=== PATIENT | female | born 1945 | race Caucasian/White ===

== ENCOUNTER → 2016-08-16 | Outpatient (CLI) | payer OTHER ==
[~2016-08-16] MED LIST: ASPEC81 PO; AZEL15GE TOP; CETI10TA84 PO; DRN400 PO; LEVO137T3 PO; LISI40TA PO; POTA20TA16 PO; RIVA1TAB4 PO; SPIR50TA PO; TNR25 PO
[2016-08-16 09:49] LABS: HEMATOCRIT 38.5 % (37-47); MEAN CELL VOLUME 90.6 fL (80-100); MEAN CORPUSCULAR HEMOGLOBIN 31.8 pg (25-34); MEAN CORPUSCULAR HGB CONC 35.1 g/dl (32-36); MEAN PLATELET VOLUME 10.3 fL (7.4-10.4); PLATELET COUNT 249 K/uL (130-400); RED BLOOD COUNT 4.25 M/uL (4.2-5.4); WHITE BLOOD COUNT 6.37 K/uL (4.8-10.8)
[2016-08-16 09:59] LABS: BLOOD UREA NITROGEN 14 mg/dl (7-18); BUN/CREATININE RATIO 14.1 (10-20); CALCIUM 9.2 mg/dl (8.5-10.1); CARBON DIOXIDE 24 mmol/L (21-32); CHLORIDE 102 mmol/L (98-107); GLUCOSE 95 mg/dl (70-99); POTASSIUM 4.5 mmol/L (3.5-5.1); SODIUM 136 mmol/L (136-145)
== END | disposition home or self-care (01) ==
LOC: C.LABVPSUW 09:29
PROVIDERS: ATTEND Internal Medicine Critical Care Medicine
DX: I10 Essential (primary) hypertension (principal); E87.5 Hyperkalemia; D64.9 Anemia, unspecified

== ENCOUNTER → 2016-10-19 | Outpatient (CLI) | payer OTHER ==
[2016-10-19 16:16] LABS: THYROID STIMULATING HORMONE 0.809 uIu/ml (0.300-4.500)
== END | disposition home or self-care (01) ==
LOC: C.LAB1850 13:58
PROVIDERS: ATTEND Internal Medicine Endocrinology, Diabetes & Metabolism
DX: D49.7 Neoplasm of unspecified behavior of endocrine glands and other parts of nervous system (principal); E03.9 Hypothyroidism, unspecified

== ENCOUNTER → 2016-11-01 | Outpatient (CLI) | payer OTHER ==
[2016-11-01 16:27] LABS: BLOOD UREA NITROGEN 14 mg/dl (7-18)
== END | disposition home or self-care (01) ==
LOC: C.LAB1850 14:08
PROVIDERS: ATTEND Internal Medicine Endocrinology, Diabetes & Metabolism
DX: D49.7 Neoplasm of unspecified behavior of endocrine glands and other parts of nervous system (principal)

== ENCOUNTER → 2016-11-02 | Outpatient (CLI) | payer OTHER ==
[~2016-11-02] MED LIST changes: +GADAVIST IV PRN
--- NOTE | 2016-11-02 17:18 | DIAGNOSTIC IMAGING REPORT ---
MRI brain and pituitary BRAIN COMBO FOR PITUITARY CLINICAL HISTORY: Pituitary mass TECHNIQUE: MRI brain and pituitary multiphasic COMPARISON STUDY: 08/19/2013 FINDINGS: Slight increase in size of a right central pituitary mass. Current measurements are 15 x 8.5 mm.; Measurement on the prior study is 12.0 x 7.7 mm. Displacement of the pituitary stalk is similar. Enhancement characteristics are similar. There is no definite involvement of the cavernous sinus. There is no abnormal enhancement characteristics of the optic chiasm. The remainder the brain is unremarkable. Signal characteristics are uniform throughout. No additional foci of postcontrast enhancement are appreciated. There are findings of a mild age-related chronic small vessel and atrophic change. IMPRESSION: 1. Slight increase in size of a pituitary nodule/mass consistent with a pituitary adenoma 2. Current maximum dimensions are 15 x 8.5 mm. This is slightly increased from the prior study of 12.0 x 7.7 mm. 3. Enhancement characteristics are unchanged. 4. Remainder the brain is normal for age Electronically signed by: Ramsey Patterson M.D. 11/02/2016 5:17 PM Dictated Date/Time: 11/02/2016 5:11 PM
== END | disposition home or self-care (01) ==
LOC: C.MRI 15:01
PROVIDERS: ATTEND Internal Medicine Endocrinology, Diabetes & Metabolism
DX: D49.7 Neoplasm of unspecified behavior of endocrine glands and other parts of nervous system (principal); E23.6 Other disorders of pituitary gland

== ENCOUNTER → 2017-02-09 | Outpatient (CLI) | payer OTHER ==
[~2017-02-09] MED LIST changes: -GADAVIST IV PRN
--- NOTE | 2017-02-10 14:31 | MAMMOGRAPHY REPORT ---
BILATERAL DIGITAL SCREENING MAMMOGRAM WITH CAD: 02/09/2017 CLINICAL HISTORY: Routine screening. TECHNIQUE: Current study was also evaluated with a Computer Aided Detection (CAD) system. Bilateral CC and MLO views were obtained. COMPARISON: Comparison is made to exams dated: 02/09/2016 mammogram, 02/06/2015 mammogram, 11/02/2010 m ammogram, 11/28/2013 mammogram, 11/11/2008 mammogram - [facility], and 11/13/2009 mammo gram - [facility]. BREAST COMPOSITION: There are scattered areas of fibroglandular density in both breasts. FINDINGS: No suspicious masses, calcifications, or areas of architectural distortion are noted in ei ther breast. There has been no significant interval change compared to prior exams. Asymmetry in the left upper outer quadrant appears stable compared to prior exams including the 2014 and 2009 exam, a nd considered benign given long-term stability. Scattered bilateral benign-appearing calcifications are stable. IMPRESSION: ACR BI-RADS CATEGORY 2: BENIGN There is no mammographic evidence of malignancy. A 1 year screening mammogram is recommended. The pa tient will receive written notification of the results. Approximately 10% of breast cancers are not detected with mammography. A negative mammographic report should not delay biopsy if a clinically suggestive mass is present. Talisha Woodruff M.D. /:02/09/2017 16:48:39 Domestic Travel Consultant: Lamin BARCENAS)(Angelica), [facility] letter sent: Normal 1/2 BI-RADS Code: ACR BI-RADS Category 2: Benign
== END | disposition home or self-care (01) ==
LOC: C.MAMM 14:38
PROVIDERS: ATTEND Internal Medicine Critical Care Medicine
DX: Z12.31 Encounter for screening mammogram for malignant neoplasm of breast (principal)

== ENCOUNTER → 2017-03-29 | Outpatient (CLI) | payer OTHER ==
[2017-03-29 16:51] LABS: ALT/SGPT 22 U/L (12-78); AST/SGOT 19 U/L (15-37)
== END | disposition home or self-care (01) ==
LOC: C.LAB 15:28
PROVIDERS: ATTEND Internal Medicine Critical Care Medicine
DX: I48.0 Paroxysmal atrial fibrillation (principal); I10 Essential (primary) hypertension; K75.9 Inflammatory liver disease, unspecified

== ENCOUNTER → 2017-10-04 | Outpatient (CLI) | payer OTHER ==
[~2017-10-04] MED LIST changes: -ASPEC81 PO; +ASPI-320 PO; +POTA-639 PO; -POTA20TA16 PO
[2017-10-04 14:30] LABS: HEMATOCRIT 36.7 % (37-47); HEMOGLOBIN 13.2 g/dL (12.0-16.0); MEAN CELL VOLUME 89.5 fL (80-100); MEAN CORPUSCULAR HEMOGLOBIN 32.2 pg (25-34); MEAN PLATELET VOLUME 9.6 fL (7.4-10.4); PLATELET COUNT 270 K/uL (130-400); RED CELL DISTRIBUTION WIDTH SD 38.9 fL (36.4-46.3); WHITE BLOOD COUNT 6.41 K/uL (4.8-10.8)
[2017-10-04 15:03] LABS: ALT/SGPT 18 U/L (12-78); AST/SGOT 19 U/L (15-37); BLOOD UREA NITROGEN 18 mg/dl (7-18); CALCIUM 9.2 mg/dl (8.5-10.1); CARBON DIOXIDE 22 mmol/L (21-32); GLUCOSE 92 mg/dl (70-99); POTASSIUM 4.6 mmol/L (3.5-5.1); SODIUM 130 mmol/L (136-145)
== END | disposition home or self-care (01) ==
LOC: C.LAB1850 13:12
PROVIDERS: ATTEND Internal Medicine Cardiovascular Disease
DX: I48.0 Paroxysmal atrial fibrillation (principal); I10 Essential (primary) hypertension

== ENCOUNTER → 2017-10-26 | Outpatient (CLI) | payer OTHER | END | disposition home or self-care (01) | LOC: C.LAB 13:54 | PROVIDERS: ATTEND Nurse Practitioner | DX: R30.0 Dysuria (principal) ==

== ENCOUNTER → 2017-11-15 | Outpatient (CLI) | payer OTHER ==
--- NOTE | 2017-11-15 13:26 | DIAGNOSTIC IMAGING REPORT ---
RIGHT LOWER EXTREMITY VENOUS DOPPLER CLINICAL HISTORY: Right calf pain and swelling. COMPARISON STUDY: No previous studies for comparison. TECHNIQUE: Sonography of the deep venous system of the right lower extremity was performed. Compression and augmentation were evaluated. FINDINGS: The common femoral, superficial femoral and popliteal veins were compressible. Augmentation was normal. Flow was shown within the deep calf vessels. Note is made of a 13.6 x 2.3 x 5.7 cm elongated complex fluid collection which extends from the popliteal fossa to the upper calf. IMPRESSION: 1. No evidence of deep venous thrombus within the right lower extremity. 2. Elongated 13.6 x 2.3 x 5.7 cm complex fluid collection which extends from the right popliteal fossa to the upper calf. A ruptured popliteal cyst is favored. A hematoma could appear similar. A follow-up ultrasound in 2 months is recommended to exclude the unlikely possibility of an underlying mass. Electronically signed by: Gerard Kunz M.D. 11/15/2017 1:25 PM Dictated Date/Time: 11/15/2017 1:21 PM
== END | disposition home or self-care (01) ==
LOC: C.ULTRBC 12:51
PROVIDERS: ATTEND Nurse Practitioner
DX: M79.89 Other specified soft tissue disorders (principal); M79.661 Pain in right lower leg

== ENCOUNTER 2023-09-02 14:26 | Inpatient (IN) ==
[2023-09-02] MEDS: dilTIAZem HCl 5 MG/ML 5 ML VIAL IV STA ×2 (14:40→15:03)
--- NOTE | 2023-09-02 14:43 | Emergency Department Note ---
History of Present Illness General Chief Complaint: Cardiac Assessment Time Seen by Provider: 09/02/23 14:34 History of Present Illness Provider Complaint: + rapid heart beat, + palpitations and + atrial fibrillation Onset (ago): 2 day(s) Duration: + Intermittent Severity: similar to previous episodes Context: + occurred during rest Arrhythmia history: + atrial fibrillation and + on anti-coagulants (eliquis) Associated symptoms: + chest pain and + shortness of breath; no syncope, no nausea, no vomiting, no anxiety, no diaphoresis, no cough or no paresthesias Home Medications Medication Instructions Recorded Confirmed Type apixaban 5 mg tablet 5 mg PO BID #180 tabs 03/25/19 09/02/23 History dronedarone 400 mg tablet (Multaq) 400 mg PO BID 03/25/19 09/02/23 History potassium chloride 20 mEq 20 meq PO DAILY 03/25/19 09/02/23 History tablet,extended release amlodipine 5 mg tablet (Norvasc) 5 mg PO DAILY #30 tabs 01/08/21 09/02/23 Rx ergocalciferol (vitamin D2) 50 mcg 50 mcg PO DAILY 07/05/21 09/02/23 History (2,000 unit) capsule bupropion HCl 150 mg tablet,12 hr 150 mg PO QAM 04/19/22 09/02/23 History sustained-release thyroid (pork) 90 mg tablet 90 mg PO DAILY #90 tabs 03/03/23 09/02/23 Rx ([place] Thyroid) lisinopril 40 mg tablet 40 mg PO DAILY #90 tabs 06/15/23 09/02/23 Rx acetaminophen 650 mg 1,300 mg PO QAM 09/02/23 09/02/23 History tablet,extended release acetaminophen 650 mg 650 mg PO HS 09/02/23 09/02/23 History tablet,extended release diphenhydramine 25 1 tab PO HS PRN Insomnia 09/02/23 09/02/23 History mg-acetaminophen 500 mg tablet (Tylenol PM Extra Strength) lorazepam 0.5 mg tablet 0.5 mg PO Q8 PRN Anxiety 09/02/23 09/02/23 History Allergies Allergy/AdvReac Type Severity Reaction Status Date / Time No Known Allergies Allergy Verified 09/02/23 16:31 Past Med/Surg History Medical History Anticoagulant long-term use Hypothyroidism Pituitary neoplasm Rectocele Hypokalemia Hypertension Paroxysmal atrial fibrillation Social History Smoking Status: Former smoker Tobacco Type: Cigarettes Second Hand Exposure: No; Do You Dip or Chew Tobacco: No; Tobacco Cessation Education Requested by Patient: No Hx Alcohol Use: Yes Hx Substance Use: No Preferred Language: Marshallese Communication Ability: Effective Count Team Member Required: No Beliefs That Will Affect Care: None Current Living Situation Comment: Indepdent living at [facility] Other Information That Helps Us Care for You: No Feels Safe at Home: Yes Safety Concerns: Feels Safe At This Time Assistive Devices: Denture - Upper Physical Exam 2 Vital Signs: Vital Signs - 24 hr 09/02/23 14:30 09/02/23 14:47 09/02/23 14:47 Temperature 36.5 C Temperature Source Oral Pulse Rate 155 H 153 H Pulse Rate from Sp O2 Sensor 108 H Pulse Rhythm Regular Pulse Strength Normal Respiratory Rate 20 19 Respiratory Effort / Characteristics Non-Labored Sponta neous Respiratory Patter n Regular Blood Pressure 157/88 H 125/84 Blood Pressure Lakia n 111 88 Pulse Oximetry 96 95 Oxygen Delivery Me thod Room Air Oxygen Flow Rate Sepsis Recent Feve r Within 48 Hours No Sepsis New/Unexpla ined Change in Men mirela Status N/A Sepsis Action Take n by Nursing No Action Required 09/02/23 14:53 09/02/23 14:53 09/02/23 14:54 Temperature Temperature Source Pulse Rate 128 H 153 H Pulse Rate from Sp O2 Sensor 95 H Pulse Rhythm Pulse Strength Respiratory Rate 13 Respiratory Effort / Characteristics Respiratory Patter n Blood Pressure 129/75 Blood Pressure Lakia n 87 Pulse Oximetry 97 Oxygen Delivery Me thod Oxygen Flow Rate Sepsis Recent Feve r Within 48 Hours Sepsis New/Unexpla ined Change in Men mirela Status Sepsis Action Take n by Nursing 09/02/23 15:00 09/02/23 15:00 09/02/23 15:10 Temperature Temperature Source Pulse Rate 137 H 123 H Pulse Rate from Sp O2 Sensor 116 H 96 H Pulse Rhythm Pulse Strength Respiratory Rate 18 18 Respiratory Effort / Characteristics Respiratory Patter n Blood Pressure 143/96 H Blood Pressure Lakia n 108 Pulse Oximetry 97 93 Oxygen Delivery Me thod Oxygen Flow Rate Sepsis Recent Feve r Within 48 Hours Sepsis New/Unexpla ined Change in Men mirela Status Sepsis Action Take n by Nursing 09/02/23 15:20 09/02/23 15:30 09/02/23 15:30 Temperature Temperature Source Pulse Rate 152 H 138 H Pulse Rate from Sp O2 Sensor 98 H 97 H Pulse Rhythm Pulse Strength Respiratory Rate 14 17 Respiratory Effort / Characteristics Respiratory Patter n Blood Pressure 128/91 Blood Pressure Lakia n 106 Pulse Oximetry 94 94 Oxygen Delivery Me thod Oxygen Flow Rate Sepsis Recent Feve r Within 48 Hours Sepsis New/Unexpla ined Change in Men mirela Status Sepsis Action Take n by Nursing 09/02/23 15:36 09/02/23 15:36 09/02/23 17:18 Temperature Temperature Source Pulse Rate 158 H Pulse Rate from Sp O2 Sensor Pulse Rhythm Pulse Strength Respiratory Rate Respiratory Effort / Characteristics Respiratory Patter n Blood Pressure 146/78 H Blood Pressure Lakia n Pulse Oximetry 95 95 Oxygen Delivery Me thod Room Air Oxygen Flow Rate 0 Sepsis Recent Feve r Within 48 Hours Sepsis New/Unexpla ined Change in Men mirela Status Sepsis Action Take n by Nursing Physical Exam: Physical Exam GENERAL: oriented to person, place, and time. appears well-developed and well- nourished. HENT: Exam performed. - Head: Normocephalic and atraumatic. EYES: Conjunctivae and EOM are normal. Right eye exhibits no discharge. Left eye exhibits no discharge. No scleral icterus. NECK: Normal range of motion. Neck supple. No JVD present. CV: Tachycardic rate, irregular rhythm, normal heart sounds and intact distal pulses. There is no peripheral edema. Palpable radial pulses bue. PULM/CHEST: Effort normal and breath sounds normal. No respiratory distress. No stridor. no wheezes. no rales. ABD: The abdomen is soft. There is no tenderness. NEURO: Motor and sensation grossly intact. SKIN: Skin is warm and dry. He is not diaphoretic. PSYCH: normal mood and affect. Behavior is normal. Judgment and thought content normal. Course Course 1434: The patient was evaluated in room C5. A complete history and physical exam was performed Cardiac monitoring: An order was placed for continuous cardiac monitoring. The monitor shows a rate of 160-200 with atrial fibrilation rhythm interpreted by me Large-bore IV access was obtained. Cardizem 20 mg bolus was given to the patient. Patient's heart rate improved into the 140-1 60 rate but still in atrial fibrillation rhythm. Blood pressure is stable. Repeat Cardizem bolus of 25 mg IV push was given which improved the patient's heart rate to 120-140. Will start the patient on Cardizem drip. 1710: Vital signs show that the patient is still tachycardic on Cardizem drip that is nearing max. Heart rates ranged from 120-1 40. Metoprolol 2.5 mg IV push ordered for the patient. 1740: Patient's heart rate still between 1 10-1 30. Metoprolol 5 mg IV push ordered for the patient. Labs within normal limits with the exception of a mildly elevated high-sensitivity troponin patient denies any chest pain thought to be due to demand ischemia. [facility]. Administered Medications Acetaminophen (Acetaminophen 325 Mg Tab) 650 mg PO HS [facility] Stop: 10/02/23 20:59 Last Admin: 09/02/23 20:35 Dose: 650 mg Documented By: ISHAN Apixaban (Apixaban 5 Mg Tablet) 5 mg PO BID [facility] Stop: 10/02/23 20:59 Last Admin: 09/02/23 20:36 Dose: 5 mg Documented By: ISHAN Dronedarone (Dronedarone Hcl 400 Mg Tab) 400 mg PO BID [facility] Stop: 10/02/23 20:59 Last Admin: 09/02/23 20:36 Dose: 400 mg Documented By: ISHAN Diltiazem HCl 125 mg/ Dextrose 125 mls @ 12.5 mls/hr IV .Q10H [facility]; Protocol Stop: 10/02/23 14:44 Last Titration: 09/02/23 20:48 Dose: 15 mg/hr, 15 mls/hr Documented By: ISHAN Co-signed By: JESUS Titration: 09/02/23 16:36 Dose: 12.5 mg/hr, 12.5 mls/hr Documented By: GLROY Co-signed By: LUCIANA Titration: 09/02/23 16:19 Dose: 10 mg/hr, 10 mls/hr Documented By: GLORY Co-signed By: LUCIANA Titration: 09/02/23 15:42 Dose: 7.5 mg/hr, 7.5 mls/hr Documented By: GLORY Co-signed By: LUCIANA Admin: 09/02/23 15:11 Dose: 5 mg/hr, 5 mls/hr Documented By: LUCIANA Co-signed By: TODD Sodium Chloride (Nss) 500 mls @ 125 mls/hr IV .Q4H [facility] Stop: 10/02/23 14:59 Last Admin: 09/02/23 20:36 Dose: 125 mls/hr Documented By: Infusion: 09/02/23 19:08 Dose: Infused Documented By: Admin: 09/02/23 14:58 Dose: 125 mls/hr Documented By: NORMA Discontinued Medications Aspirin (Aspirin Chew 324 Mg) 324 mg PO NOW STA Stop: 09/02/23 14:38 Last Admin: 09/02/23 15:03 Dose: 324 mg Documented By: NORMA Aspirin (Aspirin Chew 324 Mg) Confirm Administered Dose 324 mg .ROUTE .STK-MED ONE Stop: 09/02/23 14:39 Last Admin: 09/02/23 15:01 Dose: Not Given Documented By: NORMA Diltiazem HCl (Diltiazem Hcl 5 Mg/Ml 5 Ml Vial) 20 mg IV NOW STA Stop: 09/02/23 14:38 Last Admin: 09/02/23 14:40 Dose: 20 mg Documented By: NORMA Co-signed By: JEFF Diltiazem HCl (Diltiazem Hcl 5 Mg/Ml 5 Ml Vial) Confirm Administered Dose 25 mg IV .STK-MED ONE Stop: 09/02/23 14:39 Last Admin: 09/02/23 14:45 Dose: 25 mg Documented By: NORMA Co-signed By: JEFF Diltiazem HCl (Diltiazem Hcl 5 Mg/Ml 5 Ml Vial) 25 mg IV NOW STA Stop: 09/02/23 14:44 Last Admin: 09/02/23 15:03 Dose: Not Given Documented By: NORMA Sodium Chloride (Nss) 500 mls @ 999 mls/hr IV .Q31M STA Stop: 09/02/23 15:07 Last Infusion: 09/02/23 15:00 Dose: Infused Documented By: Admin: 09/02/23 14:56 Dose: 999 mls/hr Documented By: NORMA Lorazepam (Lorazepam 1 Mg Tab) 1 mg SL NOW STA Stop: 09/02/23 14:52 Last Admin: 09/02/23 14:55 Dose: 1 mg Documented By: NORMA Metoprolol Tartrate (Metoprolol Tartrate 1 Mg/Ml Vial) 2.5 mg IV NOW STA Stop: 09/02/23 17:12 Last Admin: 09/02/23 17:18 Dose: 2.5 mg Documented By: KT Metoprolol Tartrate (Metoprolol Tartrate 1 Mg/Ml Vial) 5 mg IV NOW STA Stop: 09/02/23 17:40 Last Admin: 09/02/23 17:50 Dose: 5 mg Documented By: KT Medical Decision Making Laboratory Data Attestation: I reviewed the patient's lab results. 09/02/23 14:46 09/02/23 14:46 Lab Results 09/02/23 09/02/23 Range/Units 14:46 16:27 WBC 11.13 H (4.8-10.8) K/ul RBC 3.95 L (4.20-5.40) M/uL Hgb 11.9 L (12.0-16.0) g/dl Hct 36.2 L (37.0-47.0) % MCV 91.6 (80.0-100.0) fL MCH 30.1 (25.0-34.0) pg MCHC 32.9 (32.0-36.0) g/dL RDW Std Deviation 45.0 (36.4-46.3) fL RDW Coeff of Leonor 13.2 (11.5-14.5) % Plt Count 302 (130-400) K/uL MPV 9.6 (9.4-12.4) fL Immature Gran % (Auto) 0.7 % Neut % (Auto) 83.5 % Lymph % (Auto) 7.2 % [place] % (Auto) 8.5 % Eos % (Auto) 0.0 % Baso % (Auto) 0.1 % Neut # (Auto) 9.29 H (1.40-6.50) K/uL Lymph # (Auto) 0.80 L (1.20-3.40) K/uL [place] # (Auto) 0.95 H (0.11-0.59) K/uL Eos # (Auto) 0.00 (0.00-0.50) K/uL Baso # (Auto) 0.01 (0.00-0.20) K/uL Immature Gran # (Auto) 0.08 (0.01-0.20) K/uL PT 11.6 (9.0-12.0) Seconds INR 1.1 (0.9-1.1) APTT 28 (21-31) Seconds PTT Ratio 1.0 Sodium 136 (136-145) mmol/L Potassium 4.3 (3.5-5.1) mmol/L Chloride 108 H (98-107) mmol/L Carbon Dioxide 21 (21-32) mmol/L Anion Gap 7 (3-11) BUN 30 H (6-23) mg/dl Creatinine 0.90 (0.6-1.2) mg/dl Est Cr Clr Drug Dosing 64.0 ml/min Est GFR ( Amer) 72.0 ml/min Est GFR (Non-Af Amer) 62.1 ml/min BUN/Creatinine Ratio 33.3 H (10-20) Glucose 123 H (70-99(Fasting)) mg/dl Calcium 9.0 (8.6-10.3) mg/dl Magnesium 2.1 (1.7-2.4) mg/dl Troponin I High Sens 23.3 H 19.5 H (0-14) pg/ml Lipase 27 (11-82) U/L TSH 0.312 (0.300-4.500) uIu/ml Imaging Data Attestation: I personally reviewed and interpreted this imaging study as follows: My Impression: Chest x-ray negative. Airway clear. No pneumothorax. No consolidation. No cardiomegaly or cephalization.. No free air under the diaphragm. No fractures of the skeletal structures. Radiologist's Impression: Chest X-Ray 09/02/23 14:37 XR chest 1V portable CLINICAL HISTORY: Chest pain, nonspecific TECHNIQUE: Single frontal radiograph of the chest was obtained. Comparison: Comparison is made to chest radiograph 04/19/2022 FINDINGS: No lines and tubes are seen. The cardiomediastinal silhouette is normal. The lungs are clear. No evidence of pleural effusion or pneumothorax. IMPRESSION: No acute chest disease. ACT 112: Negative or not required by law. Electronically signed by: Shaquille Gregg M.D. 09/02/2023 3:47 PM ECG Data Attestation: I personally reviewed and interpreted this ECG as follows: Additional Comments: EKG #1 at 1438: Atrial fibrillation with rate of 172. QRS and QTc intervals are within normal limits. No ST elevation or ST depression EKG #2 at 1445 status post Cardizem IV bolus of 20 mg: Atrial fibrillation with rate of 154. QRS and QTc intervals within normal limits. No ST elevation or ST depression. EKG #3 at 1450 status post repeat Cardizem IV bolus of 25 mg: Atrial fibrillation with a rate of 128. QRS and QTc intervals within normal limits. No ST elevation or ST depression. MDM Narrative 1434: The patient was evaluated in room C5. A complete history and physical exam was performed Cardiac monitoring: An order was placed for continuous cardiac monitoring. The monitor shows a rate of 160-200 with atrial fibrilation rhythm interpreted by me Large-bore IV access was obtained. Cardizem 20 mg bolus was given to the patient. Patient's heart rate improved into the 140-1 60 rate but still in atrial fibrillation rhythm. Blood pressure is stable. Repeat Cardizem bolus of 25 mg IV push was given which improved the patient's heart rate to 120-140. Will start the patient on Cardizem drip. 1710: Vital signs show that the patient is still tachycardic on Cardizem drip that is nearing max. Heart rates ranged from 120-1 40. Metoprolol 2.5 mg IV push ordered for the patient. 1740: Patient's heart rate still between 1 10-1 30. Metoprolol 5 mg IV push ordered for the patient. Labs within normal limits with the exception of a mildly elevated high-sensitivity troponin patient denies any chest pain thought to be due to demand ischemia. [facility]. Impression & Plan Atrial fibrillation with RVR Critical Care Time Critical Care Time: Yes Total Critical Care Time: 67 I have personally spent greater than 67 minutes of critical care time in the direct management of this patient. This includes bedside care, interpretation of diagnostic studies, and testing, discussion with consultants, patient, and family members, and other required patient management activities. This 67 minutes is in excess of all separately billable procedures. Discharge Plan Visit Data Chief Complaint: Cardiac Assessment ED Provider: Barrie Elizabeth Discharge Problem: Atrial fibrillation with RVR Patient Disposition: Admitted As Inpatient Discharge Instructions Interventions: ED Discharge Assessment Last Done: 09/02/23 18:31
[2023-09-02] MEDS: dilTIAZem HCl 5 MG/ML 5 ML VIAL IV ONE (14:45)
[2023-09-02] MEDS: LORazepam 1 MG TAB SL STA (14:55)
[2023-09-02] MEDS: SODIUM CHLORIDE 0.9% 500 ML IV STA (14:56)
[2023-09-02] MEDS: SODIUM CHLORIDE 0.9% 500 ML IV SCH (14:58)
[2023-09-02] MEDS: ASPIRIN CHEW 324 MG ONE (15:01)
[2023-09-02] MEDS: ASPIRIN CHEW 324 MG PO STA (15:03)
[2023-09-02 15:04] LABS: Basophils # (auto) 0.01 K/uL (0.00-0.20); Basophils % (auto) 0.1 %; Hematocrit (blood only) 36.2 % (37.0-47.0); Hemoglobin 11.9 g/dl (12.0-16.0); Immature Granulocytes # (auto) 0.08 K/uL (0.01-0.20); Immature Granulocytes % (auto) 0.7 %; Lymphocytes % (auto) 7.2 %; Mean Corpuscular Hemoglobin 30.1 pg (25.0-34.0); Mean Corpuscular Hgb Conc 32.9 g/dL (32.0-36.0); Mean Corpuscular Volume 91.6 fL (80.0-100.0); Mean Platelet Volume 9.6 fL (9.4-12.4); Monocytes # (auto) 0.95 K/uL (0.11-0.59); Monocytes % (auto) 8.5 %; Neutrophils # (auto) 9.29 K/uL (1.40-6.50); Neutrophils % (auto) 83.5 %; Platelet Count 302 K/uL (130-400); RDW Coefficient of Variation 13.2 % (11.5-14.5); Red Blood Count 3.95 M/uL (4.20-5.40); White Blood Count 11.13 K/ul (4.8-10.8)
[2023-09-02] MEDS: dilTIAZem HCL 125 MG in DEXTROSE 5% 100 ML IV SCH (15:11)
[2023-09-02 15:18] LABS: BUN Creatinine Ratio 33.3 (10-20); Est GFR (Non-African American) 62.1 ml/min; Magnesium 2.1 mg/dl (1.7-2.4); Potassium 4.3 mmol/L (3.5-5.1)
[2023-09-02 15:25] LABS: Troponin I High Sensitivity 23.3 pg/ml (0-14)
[2023-09-02 15:28] LABS: INR 1.1 (0.9-1.1); Partial Thromboplastin Time 28 Seconds (21-31); Prothrombin Time 11.6 Seconds (9.0-12.0)
--- NOTE | 2023-09-02 15:48 | XRay Report ---
XR chest 1V portable CLINICAL HISTORY: Chest pain, nonspecific TECHNIQUE: Single frontal radiograph of the chest was obtained. Comparison: Comparison is made to chest radiograph 04/19/2022 FINDINGS: No lines and tubes are seen. The cardiomediastinal silhouette is normal. The lungs are clear. No evid ence of pleural effusion or pneumothorax. IMPRESSION: No acute chest disease. ACT 112: Negative or not required by law. Electronically signed by: Shaquille Gregg M.D. 09/02/2023 3:47 PM
[2023-09-02] MEDS: METOPROLOL TARTRATE 1 MG/ML VIAL IV STA ×3 (17:18→21:57)
--- NOTE | 2023-09-02 17:44 | History & Physical Report ---
Date of Service September 02, 2023 Assessment & Plan (1) Anticoagulant long-term use: (2) Hypothyroidism: (3) Hypertension: (4) Paroxysmal atrial fibrillation: Plan 78 year old female with pertinent PMHx of paroxysmal A-fib, hypothyroidism, HTN presenting with palpitations x2 days. # A-Rib with RVR: - Patient s/p loading dose of Diltiazem, still in Afib with RVR but hemodynamically stable, continue Diltiazem drip overnight - Patient on long-term anticoagulation, therefore could consider cardioversion if not spontaneously converting with Diltiazem or if hemodynamically unstable - Consult cardiology, appreciate recs - TSH ~0.3 #Hypothyroidism: - Continue home med ([place] thyroid 90mg daily) #HTN: Continue home Lisinopril and amlodipine Dispo: Admit to PCU/Tele VTE ppx: Eliquis Diet: HH, NPO at midnight History of Present Illness Primary Care Provider: Magen Mcclain MD 78 year old female with pertinent PMHx of paroxysmal A-fib, hypothyroidism, HTN presenting with palpitations x2 days. Patient notes that she feels like she can tell when she is in A-fib - tachycardia/palpitations usually resolve within a few hours but have been present continuously for about 2 days now. H/o ablation, still experiences paroxysmal episodes of A-fib since procedure. Denies associated chest pain, shortness of breath, extremity swelling. Patient is on Multaq 400mg BID, notes that dose has not changed recently, also states that she is adherent with medications. On Eliquis for anticoagulation. Patient denies significant recent caffeine or alcohol use. Denies recent illness. Also states that, as far as she knows, she has been maintaining euthyroid state, no recent change in [place] thyroid dosing. ED Course: Patient found to be in atrial fibrillation with RVR, heart rate up to the 150s but otherwise hemodynamically stable. Labs significant for WBC 11.13, trop slightly elevated at 23.3, repeat 19.5 CXR negative Patient given loading dose of Diltiazem and started on Diltiazem drip. Allergies Allergy/AdvReac Type Severity Reaction Status Date / Time No Known Allergies Allergy Verified 09/02/23 16:31 Home Medications Medication Instructions Recorded Confirmed Type apixaban 5 mg tablet 5 mg PO BID #180 tabs 03/25/19 09/02/23 History dronedarone 400 mg tablet (Multaq) 400 mg PO BID 03/25/19 09/02/23 History potassium chloride 20 mEq 20 meq PO DAILY 03/25/19 09/02/23 History tablet,extended release amlodipine 5 mg tablet (Norvasc) 5 mg PO DAILY #30 tabs 01/08/21 09/02/23 Rx ergocalciferol (vitamin D2) 50 mcg 50 mcg PO DAILY 07/05/21 09/02/23 History (2,000 unit) capsule bupropion HCl 150 mg tablet,12 hr 150 mg PO QAM 04/19/22 09/02/23 History sustained-release thyroid (pork) 90 mg tablet 90 mg PO DAILY #90 tabs 03/03/23 09/02/23 Rx ([place] Thyroid) lisinopril 40 mg tablet 40 mg PO DAILY #90 tabs 06/15/23 09/02/23 Rx acetaminophen 650 mg 1,300 mg PO QAM 09/02/23 09/02/23 History tablet,extended release acetaminophen 650 mg 650 mg PO HS 09/02/23 09/02/23 History tablet,extended release diphenhydramine 25 1 tab PO HS PRN Insomnia 09/02/23 09/02/23 History mg-acetaminophen 500 mg tablet (Tylenol PM Extra Strength) lorazepam 0.5 mg tablet 0.5 mg PO Q8 PRN Anxiety 09/02/23 09/02/23 History Past Med/Surg History Medical History Anticoagulant long-term use Hypothyroidism Pituitary neoplasm Rectocele Hypokalemia Hypertension Paroxysmal atrial fibrillation Social History Smoking Status: Former smoker Tobacco Type: Cigarettes Hx Substance Use: No Preferred Language: Yi Feels Safe at Home: Yes Review of Systems Review of Systems: as per HPI Physical Exam Constitutional: WD/WN, vitals as above Neck: trachea midline, no thyromegaly Respiratory: normal respiratory effort, lungs clear to auscultation Cardiovascular: Tachycardic with irregular rhythm, no murmurs appreciated, distal pulses 2+, no LE edema appreciated Skin: no rashes, warm and dry Psychiatric: A+Ox3, euthymic affect Results & Data Results & Data Vital Signs (Past 12 Hours) Vital Signs Temp Pulse Resp BP Pulse Ox O2 Del Method O2 Flow Rate 09/02/23 17:18 158 H 146/78 H 09/02/23 15:36 95 09/02/23 15:36 95 Room Air 0 09/02/23 15:30 138 H 17 94 09/02/23 15:30 128/91 09/02/23 15:20 152 H 14 94 09/02/23 15:10 123 H 18 93 09/02/23 15:00 137 H 18 97 09/02/23 15:00 143/96 H 09/02/23 14:54 153 H 09/02/23 14:53 128 H 13 97 09/02/23 14:53 129/75 09/02/23 14:47 153 H 19 95 09/02/23 14:47 125/84 09/02/23 14:30 36.5 C 155 H 20 157/88 H 96 Room Air Laboratory Results Abnormal lab results 09/02/23 09/02/23 Range/Units 14:46 16:27 WBC 11.13 H (4.8-10.8) K/ul RBC 3.95 L (4.20-5.40) M/uL Hgb 11.9 L (12.0-16.0) g/dl Hct 36.2 L (37.0-47.0) % Neut # (Auto) 9.29 H (1.40-6.50) K/uL Lymph # (Auto) 0.80 L (1.20-3.40) K/uL [place] # (Auto) 0.95 H (0.11-0.59) K/uL Chloride 108 H (98-107) mmol/L BUN 30 H (6-23) mg/dl BUN/Creatinine Ratio 33.3 H (10-20) Glucose 123 H (70-99(Fasting)) mg/dl Troponin I High Sens 23.3 H 19.5 H (0-14) pg/ml Diagnostic Findings Chest X-Ray 09/02/23 14:37 XR chest 1V portable CLINICAL HISTORY: Chest pain, nonspecific TECHNIQUE: Single frontal radiograph of the chest was obtained. Comparison: Comparison is made to chest radiograph 04/19/2022 FINDINGS: No lines and tubes are seen. The cardiomediastinal silhouette is normal. The lungs are clear. No evidence of pleural effusion or pneumothorax. IMPRESSION: No acute chest disease. ACT 112: Negative or not required by law. Electronically signed by: Shaquille Gregg M.D. 09/02/2023 3:47 PM Supervising Physician Co-Signing Physician Notes Attending Physician Supervision Note: I independently interviewed and examined the patient and verified the hood history and physical, reviewed labs and image studies and agree with findings and care plan noted above. h/o PAF with ablation 3 yrs ago and has had episodes of a fib lasting few hours and better after overnight sleep. This time lasted longer. Only difference was intense work out in the evening before start of a fib. she is unaware if she snores. A fib RVR - continue cardizem drip and titrate for rate control. TSH at 0.3 (usually around 1-2 over many readings). consult cardiology. NPO after mid-night if needing cardioversion. continue apixaban and multaq. Resident Activity Tracking Resident Involvement: Resident Care Provided Care Provided: Adult Hospital Medicine
[2023-09-02 17:56] LABS: Thyroid Stimulating Hormone 0.312 uIu/ml (0.300-4.500)
[2023-09-02] MEDS ORDERED: diphenhydrAMINE Capsule 25 MG CAP PO PRN (18:43)
[2023-09-02] MEDS ORDERED: LORazepam 0.5 MG TAB PO PRN (18:43)
[2023-09-02] MEDS: ACETAMINOPHEN 325 MG TAB PO SCH (20:35)
[2023-09-02] MEDS: DRONEDARONE HCL 400 MG TAB PO SCH (20:36)
[2023-09-02] MEDS: APIXABAN 5 MG TABLET PO SCH (20:36)
[2023-09-02] MEDS: DIGOXIN 125 MCG in SYRINGE 9 ML IV ONE (23:54)
[2023-09-03] MEDS: DIGOXIN 125 MCG in SYRINGE 9.5 ML IV ONE (01:46)
[2023-09-03] MEDS ORDERED: AMIODARONE IV BOLUS & DRIP IV STA (04:24)
[2023-09-03] MEDS ORDERED: STAT IV Infusion **Titration per Protocol STA (04:24)
[2023-09-03] MEDS ORDERED: 0.2 MICRON FILTER SET 1 EACH IV STA (04:24)
[2023-09-03] MEDS: AMIODARONE / D5W 150 MG/100 ML BAG IV STA (04:35)
[2023-09-03] MEDS: AMIODARONE / D5W 360 MG/200 ML BAG IV ONE (04:48)
--- NOTE | 2023-09-03 07:53 | Hospitalist Progress Note ---
Date of Service September 03, 2023 Assessment & Plan (1) Anticoagulant long-term use: (2) Hypothyroidism: (3) Hypertension: (4) Paroxysmal atrial fibrillation: Plan 78 year old female with pertinent PMHx of paroxysmal A-fib, hypothyroidism, HTN presenting with palpitations x2 days. # A-Rib with RVR: - Patient still in Afib with RVR but hemodynamically stable - Patient on long-term anticoagulation, therefore could consider cardioversion if not spontaneously converting or if hemodynamically unstable - Consult cardiology, appreciate recs: - Continue Diltiazem drip - Continue Amiodarone drip - Start Metoprolol tartrate 25 mg PO [id number], hold for HR<60 or SBP<90 - NPO at midnight, consider cardioversion in AM #Hypothyroidism: - Continue home med ([place] thyroid 90mg daily) #HTN: - Continue home Lisinopril and amlodipine Dispo: PCU/Tele VTE ppx: Eliquis Diet: HH, NPO at midnight Admission and Anticipated Discharge Date Admission Date: September 02, 2023 Supervising Physician Co-Signing Physician Notes Attending Physician Supervision Note: I independently interviewed and examined the patient and verified the hood history and physical, reviewed labs and image studies and agree with findings and care plan noted above. continues to be in RVR. was given 2 doses of 0.125mg dig and started on amiodarone. A fib RVR - continue cardizem drip and amiodarone drip. hold multaq. added metoprolol 25mgs q6hrs. continue apixaban. -if RVR persists - for cardioversion in am. Subjective Patient evaluated at bedside this morning, notes that she felt tachycardic all night but denies associated sx, no chest pain or shortness of breath. Pt states that she has been cardioverted before in the past, is amenable to cardioversion if that is what is recommended by cardiology. Overnight, patient consistently in Afib with RVR, refractory to ceiling rate of Diltiazem, patient was also given Metoprolol and Digoxin before being started on Amiodarone drip. Review of Systems Review of Systems: as per HPI Physical Exam Constitutional: WD/WN, vitals as above Neck: trachea midline, no thyromegaly Respiratory: normal respiratory effort, lungs clear to auscultation Cardiovascular: Tachycardic with irregular rhythm, no murmurs appreciated, distal pulses 2+, no LE edema appreciated Skin: no rashes, warm and dry Psychiatric: A+Ox3, euthymic affect Results & Data Results & Data Vital Signs (Past 12 Hours) Vital Signs Temp Pulse Pulse Resp BP Pulse Ox O2 Del Method 09/03/23 05:38 130/85 09/03/23 04:38 145 H 150/90 H 09/03/23 03:31 134 H 09/03/23 03:00 36.6 C 143 H 18 167/94 H 96 Room Air 09/03/23 01:46 150 H 09/02/23 23:54 145 H 09/02/23 23:28 36.8 C 92 H 18 137/93 95 Room Air 09/02/23 22:55 125 H 09/02/23 21:57 135 H 09/02/23 21:56 131 H 09/02/23 21:50 141 H 123/86 09/02/23 19:05 36.5 C 138 H 20 136/90 95 Room Air Resident Activity Tracking Resident Involvement: Resident Care Provided Care Provided: Adult Hospital Medicine
--- NOTE | 2023-09-03 08:02 | Electrocardiogram Report ---
Test Reason : Blood Pressure : / mmHG Vent. Rate : 128 BPM Atrial Rate : 000 BPM P-R Int : 000 ms QRS Dur : 082 ms QT Int : 296 ms P-R-T Axes : 000 066 204 degrees QTc Int : 432 ms Atrial fibrillation with rapid ventricular response Nonspecific ST and T wave abnormality Abnormal ECG When compared with ECG of 02-SEP-2023 14:45, HR has decreased by 26 bpm Confirmed by Boom Jhaveri ([id number]) on 09/03/2023 8:02:32 AM Referred By: Confirmed By:Boom Jhaveri
--- NOTE | 2023-09-03 08:02 | Electrocardiogram Report ---
Test Reason : Blood Pressure : / mmHG Vent. Rate : 154 BPM Atrial Rate : 000 BPM P-R Int : 000 ms QRS Dur : 090 ms QT Int : 284 ms P-R-T Axes : 000 057 212 degrees QTc Int : 454 ms Atrial fibrillation with rapid ventricular response Nonspecific ST and T wave abnormality When compared with ECG of 02-SEP-2023 14:38, No significant change Confirmed by Boom Jhaveri ([id number]) on 09/03/2023 8:02:05 AM Referred By: Confirmed By:Boom Jhaveri
--- NOTE | 2023-09-03 08:02 | Electrocardiogram Report ---
Test Reason : Blood Pressure : / mmHG Vent. Rate : 172 BPM Atrial Rate : 000 BPM P-R Int : 000 ms QRS Dur : 084 ms QT Int : 258 ms P-R-T Axes : 000 049 184 degrees QTc Int : 436 ms Atrial fibrillation with rapid ventricular response with premature ventricular or aberrantly conducte d complexes Nonspecific ST and T wave abnormality Abnormal ECG When compared with ECG of 04-MAY-2023 10:33, Atrial fibrillation has replaced Sinus rhythm Vent. rate has increased BY [address] and T wave abnormality now present Confirmed by Boom Jahveri ([id number]) on 09/03/2023 8:01:46 AM Referred By: Confirmed By:Boom Jhaveri
[2023-09-03] MEDS: ACETAMINOPHEN 500 MG TAB PO SCH (08:08)
[2023-09-03] MEDS: ARMOUR THYROID 30 MG TAB PO SCH (08:08)
[2023-09-03] MEDS: amLODIPine BESYLATE 5 MG TAB PO SCH (08:09)
[2023-09-03] MEDS: CHOLECALCIFEROL 25 MCG (1000 UNITS) TAB PO SCH (08:09)
[2023-09-03] MEDS: lisinopril 40 MG TAB PO SCH (08:09)
[2023-09-03] MEDS: POTASSIUM CHLORIDE CRTAB 20 MEQ TABCR PO SCH (08:09)
[2023-09-03 08:30] LABS: Hematocrit (blood only) 33.5 % (37.0-47.0); Hemoglobin 11.2 g/dl (12.0-16.0); Mean Corpuscular Hemoglobin 30.8 pg (25.0-34.0); Mean Corpuscular Hgb Conc 33.4 g/dL (32.0-36.0); Mean Platelet Volume 9.7 fL (9.4-12.4); Platelet Count 247 K/uL (130-400); RDW Coefficient of Variation 13.2 % (11.5-14.5); RDW Standard Deviation 44.6 fL (36.4-46.3); Red Blood Count 3.64 M/uL (4.20-5.40); White Blood Count 7.99 K/ul (4.8-10.8)
[2023-09-03 08:33] LABS: BUN Creatinine Ratio 29.2 (10-20); Calcium 8.4 mg/dl (8.6-10.3); Creatinine Clr Calc Pharmacy 88.6 ml/min; Est GFR (Non-African American) 86.2 ml/min; Potassium 4.3 mmol/L (3.5-5.1)
[2023-09-03] MEDS: AMIODARONE / D5W 360 MG/200 ML BAG IV SCH (10:22)
[2023-09-03] MEDS: ACETAMINOPHEN 500 MG TAB PO PRN (13:59)
[2023-09-03] MEDS: METOPROLOL TARTRATE 25 MG TAB PO STA (15:22)
--- NOTE | 2023-09-03 15:22 | Cardiology Consultation ---
Date of Consultation September 03, 2023 Assessment & Plan (1) Atrial fibrillation with RVR: (2) Anticoagulant long-term use: Plan Case discussed with Dr. Toro. 78-year-old woman paroxysmal atrial fibrillation on dronedarone 400 mg twice daily for rhythm control and apixaban 5 mg twice daily for chronic anticoagulation who developed recurrence of atrial fibrillation with rapid ventricular response. On admission she was minimally symptomatic with no evidence of congestive heart failure or significant myocardial ischemia, despite persistently elevated heart rates she is currently asymptomatic at rest. She was initiated on diltiazem infusion, for unclear reasons overnight she was started on amiodarone infusion and dronedarone was discontinued. At this point, since she has received amiodarone bolus and infusion, will check ECG to ensure she does not developed prolonged QT interval given the potential for this on concurrent dronedarone, amiodarone, and diltiazem. Recommend initiating metoprolol tartrate 25 mg p.o. every 6 hours in hopes of achieving improved rate control, this may also allow for decrease in the rate of diltiazem infusion (desirable because diltiazem increases dronedarone/amiodarone levels). Could also use metoprolol 2.5-5 mg IV periodically for heart rate control, but since she is asymptomatic currently will utilize oral preparation first, with IV metoprolol as backup. [place] regarding next steps in rhythm management, reluctant to restart dronedarone after amiodarone bolus and infusion, reluctant to discontinue amiodarone if QT interval is acceptable, would be reasonable to assume she has failed dronedarone and could switch to IV then oral amiodarone short-term, may be candidate for pulmonary venous ablation longer term given failure of antiarrhythmics and difficulty controlling rapid ventricular response. Since she is asymptomatic, given that the precipitant for recurrent atrial fibrillation is unclear (electrolytes are favorable, no obvious cause), no need for emergent electrical cardioversion. However, if she remains in atrial fibrillation overnight would likely proceed with cardioversion tomorrow, after addition of beta-teja and further amiodarone loading. Continue diltiazem drip. Continue to hold dronedarone, do not restart while she is on amiodarone. I will inform Dr. Garcia of her status, he follows her as an outpatient and will be covering the hospital this week. History of Present Illness Reason for Consultation: afib RVR Requesting Physician: Morena Dickson MD Attending Physician: Morena Dickson MD History of Present Illness 78-year-old woman with history of paroxysmal atrial fibrillation (dronedarone/apixaban) who was admitted yesterday (09/02/2023) with tachypalpitations and exercise intolerance, found to have recurrent atrial fibrillation with rapid ventricular response. Patient has periodic episodes of tachypalpitations which are usually limited to a few hours, however she noted persistent tachypalpitations and decreased exercise tolerance over the 2 days prior to admission and was found to have atrial fibrillation with ventricular rate up to 180 bpm at the time of admission. She has not noted any chest pain, dyspnea at rest, diaphoresis, or lightheadedness. She does note tachypalpitations from time to time, but despite rate being in the 130 bpm range today she notes no subjective sense of palpitations presently. Initial ECG showed A-fib with ventricular rate [address] and T wave abnormalities, second ECG showed rate declined to 154 bpm, and a third ECG showed the rate at 128 bpm. No ECG done yet today. Troponin values were 23 and 19. At the time of my evaluation earlier this afternoon, she had no somatic complaints. Allergies Allergy/AdvReac Type Severity Reaction Status Date / Time No Known Allergies Allergy Verified 09/02/23 16:31 Home Medications Medication Instructions Recorded Confirmed Type apixaban 5 mg tablet 5 mg PO BID #180 tabs 03/25/19 09/02/23 History dronedarone 400 mg tablet (Multaq) 400 mg PO BID 03/25/19 09/02/23 History potassium chloride 20 mEq 20 meq PO DAILY 03/25/19 09/02/23 History tablet,extended release amlodipine 5 mg tablet (Norvasc) 5 mg PO DAILY #30 tabs 01/08/21 09/02/23 Rx ergocalciferol (vitamin D2) 50 mcg 50 mcg PO DAILY 07/05/21 09/02/23 History (2,000 unit) capsule bupropion HCl 150 mg tablet,12 hr 150 mg PO QAM 04/19/22 09/02/23 History sustained-release thyroid (pork) 90 mg tablet 90 mg PO DAILY #90 tabs 09/08/23 03/09/24 Rx ([place] Thyroid) lisinopril 40 mg tablet 40 mg PO DAILY #90 tabs 06/15/23 09/02/23 Rx acetaminophen 650 mg 1,300 mg PO QAM 09/02/23 09/02/23 History tablet,extended release acetaminophen 650 mg 650 mg PO HS 09/02/23 09/02/23 History tablet,extended release diphenhydramine 25 1 tab PO HS PRN Insomnia 09/02/23 09/02/23 History mg-acetaminophen 500 mg tablet (Tylenol PM Extra Strength) lorazepam 0.5 mg tablet 0.5 mg PO Q8 PRN Anxiety 09/02/23 09/02/23 History Patient History Medical History Anticoagulant long-term use Hypothyroidism Pituitary neoplasm Rectocele Hypokalemia Hypertension Paroxysmal atrial fibrillation Social History Smoking Status: Former smoker Tobacco Type: Cigarettes Second Hand Exposure: No; Do You Dip or Chew Tobacco: No; Tobacco Cessation Education Requested by Patient: No Hx Alcohol Use: Yes Hx Substance Use: No Preferred Language: Spanish Communication Ability: Effective Instrument Processing Tech Required: No Beliefs That Will Affect Care: None Current Living Situation Comment: Indepdent living at [facility] Other Information That Helps Us Care for You: No Feels Safe at Home: Yes Safety Concerns: Feels Safe At This Time Assistive Devices: Denture - Upper Physical Exam Physical Exam: Elderly white female who appears to be comfortable Afebrile. BP moderately hypertensive. Pulse 120 bpm and irregular. Skin: no ecchymoses or generalized lesions. HEENT: unremarkable. Neck: JVP at the clavicle at 90 degrees, no carotid bruits. Lungs: clear. Cardiac: Irregular/tachycardic, normal S1-2, no obvious murmur. Abdomen: benign. Extremities: no edema, pulses intact. Neurologic: normal affect and conversation, nonfocal. Results & Data Laboratory Results Troponins as per HPI. Normal white count, hemoglobin 1.2, normal platelet count. Normal electrolytes with potassium of 4.3 and magnesium 2.0. BUN 19, creatinine 0.65. Diagnostic Findings ECGs as per HPI. Chest x-ray unremarkable. No recent echocardiogram. PG Care Time/CCT Total # of Minutes Spent Total Time Spent with Patient: Total time spent is greater than 50% in coordination of care (as documented) at patient's floor/unit and/or counseling patient: Coding Level of Care Code 16177 IN/OBS CONSULT LVL 5,80M Diagnoses Atrial fibrillation with RVR I48.91 Anticoagulant long-term use Z79.01
[2023-09-03] MEDS: METOPROLOL TARTRATE 25 MG TAB PO SCH (19:59)
[2023-09-04] MEDS: STAT IV Infusion **Titration per Protocol STA (00:50)
--- NOTE | 2023-09-04 07:42 | Hospitalist Progress Note ---
Date of Service September 04, 2023 Assessment & Plan (1) Anticoagulant long-term use: (2) Hypothyroidism: (3) Hypertension: (4) Paroxysmal atrial fibrillation: Plan 78 year old female with pertinent PMHx of paroxysmal A-fib, hypothyroidism, HTN presenting with palpitations x2 days. # A-Rib with RVR: - S/p successful cardioversion to sinus rhythm but with bradycardia, subsequent reversion to A-fib with RVR - overall presentation suggestive of tachy-lexi syndrome - Consult cardiology, appreciate recs: - Discontinue Diltiazem drip - Continue Amiodarone, convert to PO 400mg BID - Continue Metoprolol tartrate 25 mg PO [id number], hold for HR<60 or SBP<90 - To evaluate for potential pacemaker placement, NPO at midnight - Anticoagulation with Heparin in the perioperative setting, revert to Eliquis for long-term anticoagulation in the post-op setting #Hypothyroidism: - Continue home med ([place] thyroid 90mg daily) #HTN: - Continue home Lisinopril and amlodipine Dispo: PCU/Tele VTE ppx: Heparin Diet: HH, NPO at midnight Admission and Anticipated Discharge Date Admission Date: September 02, 2023 Supervising Physician Co-Signing Physician Notes I personally examined the patient and verified all hood points of history and exam, discussed case, and agree with decision making with Dr Toro patient seen after cardioversion, she was feeling good. Plan was for home. Discussed plans to consider ablation as an outpatient. Unfortunately she went back into A-fib RVR, fortunately it was before she left. Discussed with cardiologygiven the recurrence of RVR, as well as her being bradycardic when she is in sinus rhythmvery concerning that she is devolving into sick sinus syndromeEP will see tomorrow. A-fib/RVR/sick sinus syndromecontinue to try to control rategiven that she is starting to show evidence of sick sinus, anticipate pacer tomorrow. Otherwise as above. Subjective Patient evaluated at bedside this morning, notes that she felt tachycardic all night but denies associated sx, no chest pain or shortness of breath. Pt states that she has been cardioverted before in the past, is amenable to cardioversion if that is what is recommended by cardiology. Overnight, patient consistently in Afib with RVR, rates 120s-150s as well as multiple short runs of VTach. Review of Systems Review of Systems: as per HPI Physical Exam Constitutional: WD/WN, vitals as above Neck: trachea midline, no thyromegaly Respiratory: normal respiratory effort, lungs clear to auscultation Cardiovascular: Rate/Rhythm: + tachycardic and + irregularly irregular Skin: no rashes, warm and dry Psychiatric: A+Ox3, euthymic affect Results & Data Results & Data Vital Signs (Past 12 Hours) Vital Signs Temp Pulse Pulse Resp BP Pulse Ox O2 Del Method 09/04/23 07:18 144 H 09/04/23 05:15 36.3 C L 125 H 18 133/87 98 Room Air Resident Activity Tracking Resident Involvement: Resident Care Provided Care Provided: Adult Hospital Medicine
[2023-09-04] MEDS ORDERED: PROPOFOL IV EMULSION 10 MG/ML 20 ML VIAL IV ONE (09:53)
[2023-09-04] MEDS ORDERED: LIDOCAINE 2% 2 ML VIAL/AMP(20MG/ML) INFIL ONE (09:53)
--- NOTE | 2023-09-04 10:12 | Anesthesiology Consultation ---
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 - Ze Garcia MD Height/Weight Height: 5 ft 10 in Weight: 85 kg Allergies Allergy/AdvReac Type Severity Reaction Status Date / Time No Known Allergies Allergy Verified 09/02/23 16:31 Medications Home Medications Medication Instructions Recorded Confirmed Last Taken apixaban 5 mg tablet 5 mg PO BID #180 tabs 03/25/19 09/02/23 09/02/23 12:00 dronedarone 400 mg tablet (Multaq) 400 mg PO BID 03/25/19 09/02/23 04/19/22 08:00 potassium chloride 20 mEq 20 meq PO DAILY 03/25/19 09/02/23 04/19/22 tablet,extended release amlodipine 5 mg tablet (Norvasc) 5 mg PO DAILY #30 tabs 01/08/21 09/02/23 04/19/22 ergocalciferol (vitamin D2) 50 mcg 50 mcg PO DAILY 07/05/21 09/02/23 04/19/22 (2,000 unit) capsule bupropion HCl 150 mg tablet,12 hr 150 mg PO QAM 04/19/22 09/02/23 04/19/22 sustained-release thyroid (pork) 90 mg tablet 90 mg PO DAILY #90 tabs 03/03/23 09/02/23 Unknown ([place] Thyroid) lisinopril 40 mg tablet 40 mg PO DAILY #90 tabs 06/15/23 09/02/23 Unknown acetaminophen 650 mg 1,300 mg PO QAM 09/02/23 09/02/23 Unknown tablet,extended release acetaminophen 650 mg 650 mg PO HS 09/02/23 09/02/23 Unknown tablet,extended release diphenhydramine 25 1 tab PO HS PRN Insomnia 09/02/23 09/02/23 Unknown mg-acetaminophen 500 mg tablet (Tylenol PM Extra Strength) lorazepam 0.5 mg tablet 0.5 mg PO Q8 PRN Anxiety 09/02/23 09/02/23 Unknown Active Medications Generic Name Dose Route Start Last Admin Trade Name [place] PRN Reason Stop Dose Admin Acetaminophen 650 mg 09/02/23 21:00 09/03/23 19:59 Acetaminophen 325 Mg Tab PO 10/02/23 20:59 650 mg HS HENRY Administration Acetaminophen 1,000 mg 09/03/23 09:00 09/04/23 09:24 Acetaminophen 500 Mg Tab PO 10/03/23 08:59 1,000 mg QAM HENRY Administration Acetaminophen 500 mg 09/03/23 13:50 09/03/23 13:59 Acetaminophen 500 Mg Tab PO 10/03/23 13:49 500 mg Q8H PRN Administration Pain Amlodipine Besylate 5 mg 09/03/23 09:00 09/04/23 09:27 Amlodipine Besylate 5 Mg Tab PO 10/03/23 08:59 5 mg DAILY HENRY Administration Apixaban 5 mg 09/02/23 21:00 09/04/23 09:27 Apixaban 5 Mg Tablet PO 10/02/23 20:59 5 mg BID HENRY Administration Dronedarone 400 mg 09/02/23 21:00 09/02/23 20:36 Dronedarone Hcl 400 Mg Tab PO 10/02/23 20:59 400 mg BID HENRY Administration Amiodarone HCl/Dextrose 360 mg in 200 mls @ 16.667 mls/hr 09/03/23 10:30 09/03/23 22:16 Nexterone / D5w IV 10/03/23 10:29 0.5 mg/min .Q12H HENRY 16.7 mls/hr Administration 0.5 MG/MIN Lisinopril 40 mg 09/03/23 09:00 09/04/23 09:27 Lisinopril 40 Mg Tab PO 10/03/23 08:59 40 mg DAILY HENRY Administration Metoprolol Tartrate 25 mg 09/03/23 21:00 09/04/23 09:25 Metoprolol Tartrate 25 Mg Tab PO 10/03/23 20:59 25 mg Q6H HENRY Administration Potassium Chloride 20 meq 09/03/23 09:00 09/04/23 09:26 Potassium Chloride Crtab 20 Meq Tabcr PO 10/03/23 08:59 20 meq DAILY HENRY Administration Thyroid 90 mg 09/03/23 09:00 03/11/24 09:25 [place] Thyroid 30 Mg Tab PO 10/03/23 08:59 90 mg DAILY HENRY Administration Vitamin D 50 mcg 09/03/23 09:00 09/04/23 09:26 Cholecalciferol 25 Mcg (1000 Units) Tab PO 10/03/23 08:59 50 mcg DAILY HENRY Administration NPO Date Last Intake of Fluids: 09/04/23 Time Last Intake of Fluids: 07:00 Date Last Intake of Solids: 09/03/23 Time Last Intake of Solids: 17:00 Past Medical History Medical History Anticoagulant long-term use Hypothyroidism Pituitary neoplasm Rectocele Hypokalemia Hypertension Paroxysmal atrial fibrillation Exercise / Class Metabolic Activity II 4-5 Yardwork/Stairs/Walk up hill Past Anesthesia History No Hx of Anesthesia Complications and No Family Hx of Anesthesia Complications History of PONV No Hx of PONV and No Hx of Motion Sickness Social History Smoking Status: Former smoker Do You Dip or Chew Tobacco: No Hx Alcohol Use: Yes alcohol intake frequency: 0-2 drinks per day Alcohol Intake Frequency Comment: Occansional Hx Substance Use: No substance use type: does not use Review of Systems ROS Unobtainable: All systems reviewed & are unremarkable except as noted in HPI & below Physical Exam Vital Signs Last Vital Signs Temp 36.7 C 09/04/23 07:45 Pulse 133 H 09/04/23 09:48 Resp 20 09/04/23 09:48 BP 144/103 H 09/04/23 09:48 Pulse Ox 93 09/04/23 09:48 O2 Del Method Room Air 09/04/23 09:48 O2 Flow Rate 0 09/02/23 15:36 Constitutional no acute distress ENMT Mouth: no TMJ abnormality Thyromental Distance: > or= 3.5 Finger Breadths Mallampati Class: II Neck normal visual inspection and trachea midline; neck extension not limited Respiratory normal respiratory effort Auscultation: lungs clear to auscultation bilaterally Cardiovascular Rate/Rhythm: + abnormal rate and + abnormal rhythm Heart Sounds: no murmur Musculoskeletal Spine: normal cervical ROM Extremities: full ROM of extremities Neurologic moves all extremities Psychiatric Orientation: alert and oriented x 3 Testing Laboratory Results 09/03/23 06:08 09/03/23 06:08 PT 11.6 Seconds (9.0-12.0) 09/02/23 14:46 INR 1.1 (0.9-1.1) 09/02/23 14:46 APTT 28 Seconds (21-31) 09/02/23 14:46 Electrocardiogram Date: 09/02/23 Atrial fibrillation with rapid ventricular response Nonspecific ST and T wave abnormality Abnormal ECG When compared with ECG of 02-SEP-2023 14:45, HR has decreased by 26 bpm
--- NOTE | 2023-09-04 10:21 | Cardiology Progress Note ---
Date of Service September 04, 2023 Assessment & Plan (1) Paroxysmal atrial fibrillation: (2) Hypertension: (3) Anticoagulant long-term use: Plan ASSESSMENT/PLAN: 1. Paroxysmal atrial fibrillation: Has been symptomatic with documented episodes. Frequency has increased while on Multaq in the past few months. Now on amiodarone drip as initiated by primary hospitalist service. We discussed treatment strategies. Because while on a dill drip and amiodarone, she is still not well rate controlled, and the fact that she remains symptomatic, rate control strategy not likely to offer reasonable benefit. Recommend DC cardioversion. Risks and benefits were discussed with her in detail and she is agreeable to proceed. She confirms no missed doses of therapeutic anticoagulation therapy for at least 4 weeks. Continue amiodarone drip for now and will convert to p.o. amiodarone. Discussed consideration for ablation if she is interested. She is interested in meeting with EP as an outpatient to discuss ablation option. Potential adverse reactions to amiodarone discussed. Monitor transaminase levels and TSH periodically. 2. Hypertension: Blood pressure has mostly been mildly elevated. Can increase amlodipine if remains elevated. Continue KIKI inhibitor. HCTZ discontinued in the past by endocrinology due to hyponatremia. 3. Anticoagulation therapy: Continue for at least 4 weeks without interruption following cardioversion although long-term anticoagulation therapy remains indicated. Monitor CBC periodically. 4. Disposition: Will proceed with cardioversion. Potentially can be discharged later today if tolerated and does well. Highly complex medical issues. Addendum: Cardioversion performed and successful. Sinus bradycardia following although still somewhat sedated at the time of last evaluation. Will convert intravenous amiodarone to p.o. Monitor for significant bradycardia. Due to bradycardia, will not discharge on a loading dose. Depending on heart rate, will use 200 mg once or twice daily. Follow-up in the cardiology office in 1 to 2 weeks and can arrange for outpatient EP evaluation at a facility that performs A-fib ablation at that time. Patient care communicated with Dr. Moralez of the primary hospitalist service. Admission and Anticipated Discharge Date Admission Date: September 02, 2023 Subjective She was seen in her room today. She remains symptomatic with atrial fibrillation with rapid ventricular response despite diltiazem drip and amiodarone drip. She has not missed any doses of her anticoagulation therapy for at least 4 weeks. She states that she has had increased frequency of A-fib symptoms since she was last seen in the office on 05/04/2023, despite being on Multaq. She denies chest pain, shortness of breath, syncope, near syncope, edema, or bleeding. She has continuous palpitations since this event over the past 3 to 4 days. There was no family/friends in her room with her today. A medical student from the primary service was at the bedside. Physical Exam Physical Exam: Gen.: No acute distress. Alert and oriented. HEENT: Anicteric sclera. Neck: No JVD. Cardiac: No ventricular heave. Irregularly irregular and tachycardic. Normal S1-S2. No murmurs, rubs, or gallops. Pulmonary: Clear to auscultation bilaterally without wheezes, rales, or rhonchi. Abdomen: Soft, nontender, nondistended, with normoactive bowel sounds. No bruits noted. Extremities: 2+ radial pulses bilaterally. 2+ posterior tibialis pulses bilaterally. No edema or cyanosis. Psychiatric: Affect appears appropriate. Results & Data Vital Signs (Past 12 Hours) Vital Signs Temp Pulse Pulse Resp BP Pulse Ox O2 Del Method 09/04/23 07:45 36.7 C 75 18 133/56 L 97 Room Air 09/04/23 07:18 144 H 09/04/23 05:15 36.3 C L 125 H 18 133/87 98 Room Air Laboratory Results Laboratory Results - last 48 hr 09/02/23 09/02/23 09/03/23 14:46 16:27 06:08 WBC 11.13 H 7.99 RBC 3.95 L 3.64 L Hgb 11.9 L 11.2 L Hct 36.2 L 33.5 L MCV 91.6 92.0 MCH 30.1 30.8 MCHC 32.9 33.4 RDW Std Deviation 45.0 44.6 RDW Coeff of Leonor 13.2 13.2 Plt Count 302 247 MPV 9.6 9.7 Immature Gran % (Auto) 0.7 Neut % (Auto) 83.5 Lymph % (Auto) 7.2 Mckean % (Auto) 8.5 Eos % (Auto) 0.0 Baso % (Auto) 0.1 Neut # (Auto) 9.29 H Lymph # (Auto) 0.80 L Mckean # (Auto) 0.95 H Eos # (Auto) 0.00 Baso # (Auto) 0.01 Immature Gran # (Auto) 0.08 PT 11.6 INR 1.1 APTT 28 PTT Ratio 1.0 Sodium 136 137 Potassium 4.3 4.3 Chloride 108 H 110 H Carbon Dioxide 21 22 Anion Gap 7 5 BUN 30 H 19 Creatinine 0.90 0.65 Est Cr Clr Drug Dosing 64.0 88.6 Est GFR ( Amer) 72.0 100.0 Est GFR (Non-Af Amer) 62.1 86.2 BUN/Creatinine Ratio 33.3 H 29.2 H Glucose 123 H 129 H Calcium 9.0 8.4 L Magnesium 2.1 2.0 Troponin I High Sens 23.3 H 19.5 H Lipase 27 TSH 0.312 Diagnostic Findings Chart reviewed. Telemetry personally reviewed: Atrial fibrillation with rapid ventricular response. ECG personally reviewed 09/03/2023 at 1633: A-fib with RVR at 118 bpm. Labs reviewed from 09/03/2023 and notable for stable renal function, normal potassium, mild but stable anemia. TSH normal on 09/02/2023. Medications Administered Current Inpatient Medications Acetaminophen (Acetaminophen 325 Mg Tab) 650 mg PO HS HENRY Stop: 10/02/23 20:59 Last Admin: 09/03/23 19:59 Dose: 650 mg Acetaminophen (Acetaminophen 500 Mg Tab) 1,000 mg PO QAM HENRY Stop: 10/03/23 08:59 Last Admin: 09/04/23 09:24 Dose: 1,000 mg Acetaminophen (Acetaminophen 500 Mg Tab) 500 mg PO Q8H PRN PRN Reason: Pain Stop: 10/03/23 13:49 Last Admin: 09/03/23 13:59 Dose: 500 mg Amlodipine Besylate (Amlodipine Besylate 5 Mg Tab) 5 mg PO DAILY HENRY Stop: 10/03/23 08:59 Last Admin: 09/04/23 09:27 Dose: 5 mg Apixaban (Apixaban 5 Mg Tablet) 5 mg PO BID HENRY Stop: 10/02/23 20:59 Last Admin: 09/04/23 09:27 Dose: 5 mg Diphenhydramine HCl (Diphenhydramine Capsule 25 Mg Cap) 25 mg PO HS PRN PRN Reason: Insomnia Stop: 10/02/23 18:42 Dronedarone (Dronedarone Hcl 400 Mg Tab) 400 mg PO BID HENRY Stop: 10/02/23 20:59 Last Admin: 09/02/23 20:36 Dose: 400 mg Amiodarone HCl/Dextrose (Nexterone / D5w) 360 mg in 200 mls @ 16.667 mls/hr IV .Q12H HENRY Stop: 10/03/23 10:29 Last Admin: 09/03/23 22:16 Dose: 0.5 mg/min, 16.7 mls/hr Lisinopril (Lisinopril 40 Mg Tab) 40 mg PO DAILY HENRY Stop: 10/03/23 08:59 Last Admin: 09/04/23 09:27 Dose: 40 mg Lorazepam (Lorazepam 0.5 Mg Tab) 0.5 mg PO Q8 PRN PRN Reason: Anxiety Stop: 10/02/23 18:42 Metoprolol Tartrate (Metoprolol Tartrate 25 Mg Tab) 25 mg PO Q6H HENRY Stop: 10/03/23 20:59 Last Admin: 09/04/23 09:25 Dose: 25 mg Polyethylene Glycol (Polyethylene (Miralax) 17 Gm Pack) 17 gm PO DAILY PRN PRN Reason: Constipation Stop: 10/02/23 18:42 Potassium Chloride (Potassium Chloride Crtab 20 Meq Tabcr) 20 meq PO DAILY HENRY Stop: 10/03/23 08:59 Last Admin: 09/04/23 09:26 Dose: 20 meq Thyroid ([place] Thyroid 30 Mg Tab) 90 mg PO DAILY HENRY Stop: 10/03/23 08:59 Last Admin: 09/04/23 09:25 Dose: 90 mg Vitamin D (Cholecalciferol 25 Mcg (1000 Units) Tab) 50 mcg PO DAILY HENRY Stop: 10/03/23 08:59 Last Admin: 09/04/23 09:26 Dose: 50 mcg PG Care Time/CCT Total # of Minutes Spent Total Time Spent with Patient: Total time spent is greater than 50% in coordination of care (as documented) at patient's floor/unit and/or counseling patient: Coding Level of Care Code 90004 SUB INP/OBS CARE 3/50MIN Diagnoses Paroxysmal atrial fibrillation I48.0 Hypertension I10 Anticoagulant long-term use Z79.01
--- NOTE | 2023-09-04 10:31 | Cardioversion ---
Date of Service September 04, 2023 PG Electrical Cardioversion Rp Electrical Cardioversion Report Procedure: DC CV (elective) Indication: Symptomatic atrial fibrillation with RVR Informed Written Consent: Obtained. Sedation: Provided by anesthesiology. TimeOut: Preformed. Antiarrhythmic Therapy: Currently on amiodarone gtt. Presented on [place] [employer]. Procedure Details: Once sufficiently sedated, 150 Joules were delivered in a synchronized fashion, which successfully converted atrial fibrillation to sinus bradycardia in the upper 40s to mid 50s. She remained hemodynamically stable throughout without known complication at the time of this note. Plan: 1. Convert amio to po. 2. Remain on therapeutic anticoagulation without interruption for at least 4 weeks, although flash welder therapy is indicated. 3. Follow up in the outpatient setting in 1-2 weeks. Coding Level of Care Code 98422 CARDIOVERSION, ELECTIVE Additional Codes Electrical Cardioversion Report ([id number])
[2023-09-04] MEDS: AMIODARONE 200 MG TAB PO SCH (15:59)
[2023-09-04] MEDS ORDERED: AMIODARONE 200 MG TAB PO SCH (17:00)
--- NOTE | 2023-09-04 18:07 | Billing Data ---
Date of Service September 04, 2023 Coding Level of Care Code 33802 SUB INP/OBS CARE
[2023-09-04] MEDS ORDERED: Heparin IV Adult Wt-Based Standard w/ INITIAL Bolus Protocol IV ONE (20:00)
[2023-09-04] MEDS: HEPARIN SODIUM/DEXTROSE 25,000 UNITS/500 ML BAG IV SCH (21:24)
[2023-09-04] MEDS: HEPARIN SOD (PORCINE) 1000 UNIT/ML IV SCH (21:24)
[2023-09-04 21:26] LABS: Partial Thromboplastin Time 28 Seconds (21-31); Prothrombin Time 11.3 Seconds (9.0-12.0)
[2023-09-04 21:30] LABS: ANTI-Xa, UFH(UnfractionatedHep 0.97 IU/ml (0.3-0.7)
[2023-09-04 21:37] LABS: Basophils # (auto) 0.01 K/uL (0.00-0.20); Basophils % (auto) 0.1 %; Eosinophils # (auto) 0.01 K/uL (0.00-0.50); Eosinophils % (auto) 0.1 %; Hematocrit (blood only) 39.6 % (37.0-47.0); Hemoglobin 13.1 g/dl (12.0-16.0); Immature Granulocytes # (auto) 0.06 K/uL (0.01-0.20); Immature Granulocytes % (auto) 0.6 %; Lymphocytes # (auto) 1.91 K/uL (1.20-3.40); Lymphocytes % (auto) 17.6 %; Mean Corpuscular Hemoglobin 30.3 pg (25.0-34.0); Mean Corpuscular Hgb Conc 33.1 g/dL (32.0-36.0); Mean Corpuscular Volume 91.5 fL (80.0-100.0); Mean Platelet Volume 9.9 fL (9.4-12.4); Monocytes # (auto) 1.11 K/uL (0.11-0.59); Monocytes % (auto) 10.2 %; Neutrophils # (auto) 7.77 K/uL (1.40-6.50); Neutrophils % (auto) 71.4 %; Platelet Count 313 K/uL (130-400); RDW Standard Deviation 44.4 fL (36.4-46.3); Red Blood Count 4.33 M/uL (4.20-5.40); White Blood Count 10.87 K/ul (4.8-10.8)
[2023-09-05 04:48] LABS: Hemoglobin 12.2 g/dl (12.0-16.0); Mean Corpuscular Hemoglobin 29.8 pg (25.0-34.0); Mean Corpuscular Volume 90.5 fL (80.0-100.0); Mean Platelet Volume 9.6 fL (9.4-12.4); Platelet Count 284 K/uL (130-400); RDW Standard Deviation 42.9 fL (36.4-46.3); Red Blood Count 4.09 M/uL (4.20-5.40)
[2023-09-05 05:06] LABS: Albumin Globulin Ratio 1.9 (0.9-2); Albumin Level 3.7 gm/dl (3.4-5.0); BUN Creatinine Ratio 28.4 (10-20); Bilirubin,Total 0.5 mg/dl (0.2-1.0); Calcium 8.7 mg/dl (8.6-10.3); Creatinine Clr Calc Pharmacy 85.2 ml/min; Est GFR (Non-African American) 85.4 ml/min; Potassium 3.9 mmol/L (3.5-5.1); Total Protein 5.7 gm/dl (6.0-8.3)
--- NOTE | 2023-09-05 05:33 | Electrocardiogram Report ---
Test Reason : Blood Pressure : / mmHG Vent. Rate : 118 BPM Atrial Rate : 122 BPM P-R Int : 000 ms QRS Dur : 094 ms QT Int : 328 ms P-R-T Axes : 000 059 124 degrees QTc Int : 459 ms Atrial fibrillation with rapid ventricular response with premature ventricular or aberrantly conducte d complexes Nonspecific ST and T wave abnormality Abnormal ECG When compared with ECG of 02-SEP-2023 14:50, No significant change Confirmed by Ze Garcia ([id number]) on 09/05/2023 5:32:53 AM Referred By: REFERRED SELF Confirmed By:Ze Garcia
--- NOTE | 2023-09-05 05:56 | Electrocardiogram Report ---
Test Reason : Blood Pressure : / mmHG Vent. Rate : 132 BPM Atrial Rate : 159 BPM P-R Int : 000 ms QRS Dur : 102 ms QT Int : 336 ms P-R-T Axes : 000 054 202 degrees QTc Int : 497 ms Atrial fibrillation with rapid ventricular response with premature ventricular or aberrantly conducte d complexes Nonspecific ST and T wave abnormality Abnormal ECG When compared with ECG of 03-SEP-2023 16:33, No significant change was found Confirmed by Ze Garcia ([id number]) on 09/05/2023 5:56:06 AM Referred By: REFERRED SELF Confirmed By:Ze Garcia
[2023-09-05] MEDS ORDERED: ceFAZolin 330 MG/ML 1 GM VIAL IV SCH (06:00)
--- NOTE | 2023-09-05 06:03 | Electrocardiogram Report ---
Test Reason : Blood Pressure : / mmHG Vent. Rate : 048 BPM Atrial Rate : 048 BPM P-R Int : 184 ms QRS Dur : 092 ms QT Int : 418 ms P-R-T Axes : 045 049 073 degrees QTc Int : 373 ms Sinus bradycardia Nonspecific ST abnormality Abnormal ECG When compared with ECG of 04-SEP-2023 07:33, Sinus rhythm has replaced Atrial fibrillation Vent. rate has decreased BY 84 BPM Nonspecific T wave abnormality no longer evident in Inferior leads Nonspecific T wave abnormality no longer evident in Lateral leads Confirmed by Ze Garcia ([id number]) on 09/05/2023 6:02:53 AM Referred By: REFERRED SELF Confirmed By:Ze Garcia
[2023-09-05 06:09] LABS: ANTI-Xa, UFH(UnfractionatedHep > 1.50 IU/ml (0.3-0.7)
--- NOTE | 2023-09-05 07:15 | Hospitalist Progress Note ---
Date of Service September 05, 2023 Assessment & Plan (1) Anticoagulant long-term use: (2) Hypothyroidism: (3) Hypertension: (4) Paroxysmal atrial fibrillation: Plan 78 year old female with pertinent PMHx of paroxysmal A-fib, hypothyroidism, HTN presenting with palpitations x2 days. # A-Fib with RVR, Tachy-Omkar Syndrome: - S/p pacer placement - broadly speaking, now that pacer can serve as a barrier against bradycardia, plan will be to up-titrate rate control medications - Consult cardiology, appreciate recs: - Restart Diltiazem 180mg daiy - Continue Amiodarone PO 400mg BID - Increase Metoprolol to 100mg BID, hold for HR<60 or SBP<90 #Hypothyroidism: - Continue home med ([place] thyroid 90mg daily) #HTN: - Continue home Lisinopril and amlodipine Dispo: PCU/Tele VTE ppx: Hold in setting of immediate post-op period Diet: HH Admission and Anticipated Discharge Date Admission Date: September 02, 2023 Supervising Physician Co-Signing Physician Notes I personally examined the patient and verified all hood points of history and exam, discussed case, and agree with decision making with Dr Toro feeling OK but HR increased. vitals noted nad heent nc at mmm breathing unlabored no accessory muscles A-fib/RVR/sick sinus syndromepost pacer, rates still high. increase metoprolol, titrate meds, follow. Subjective Patient evaluated at bedside with medical team s/p pacer placement. Overnight, patient consistently in Afib with RVR. Vitals reviewed, hemodynamically stable. No chest pain or SOB. Review of Systems Review of Systems: as per HPI Physical Exam Constitutional: WD/WN, vitals as above Neck: trachea midline, no thyromegaly Respiratory: normal respiratory effort, lungs clear to auscultation Cardiovascular: Rate/Rhythm: + tachycardic and + irregularly irregular Skin: no rashes, warm and dry Psychiatric: A+Ox3, euthymic affect Results & Data Results & Data Vital Signs (Past 12 Hours) Vital Signs Temp Pulse Resp BP Pulse Ox O2 Del Method 09/05/23 07:07 36.5 C 57 L 14 135/79 96 Room Air 09/05/23 02:38 36.6 C 68 18 119/82 96 Room Air 09/04/23 23:06 36.2 C L 79 18 123/80 97 Room Air 09/04/23 19:23 36.5 C 80 18 136/68 98 Room Air Resident Activity Tracking Resident Involvement: Resident Care Provided Care Provided: Adult Hospital Medicine
--- NOTE | 2023-09-05 08:35 | History & Physical Bridge Note ---
Date of Service September 05, 2023 History & Physical Bridge Note I have examined the patient, reviewed the History & Physical and progress notes. I have noted the following changes of clinical significance: no changes noted. I reviewed the indications, procedure, risks and alternatives with the patient, and answered all questions. Patient understands and agrees to the procedure. Consent obtained. I also reviewed the risks and use of sedation, patient understands and consent obtained.
--- NOTE | 2023-09-05 08:36 | Pre Anesthesia Assessment ---
Date of Service September 05, 2023 Pre Sedation Assessment Vital Signs Temp Pulse Pulse Resp BP BP Pulse Ox 09/05/23 07:33 36.7 C 125 H 18 96/79 L 96 09/05/23 07:07 36.5 C 57 L 14 135/79 96 09/05/23 02:38 36.6 C 68 18 119/82 96 09/04/23 23:06 36.2 C L 79 18 123/80 97 09/04/23 19:23 36.5 C 80 18 136/68 98 09/04/23 17:11 182 H 09/04/23 15:47 36.7 C 147 H 19 126/79 96 09/04/23 12:05 37.1 C 128 H 18 146/103 H 95 09/04/23 11:00 48 L 09/04/23 10:50 36.4 C L 48 L 20 136/84 96 09/04/23 10:45 49 L 18 131/75 97 09/04/23 10:31 58 L 18 115/78 97 09/04/23 09:48 133 H 20 144/103 H 93 O2 Del Method 09/05/23 07:33 Room Air 09/05/23 07:07 Room Air 09/05/23 02:38 Room Air 09/04/23 23:06 Room Air 09/04/23 19:23 Room Air 09/04/23 17:11 09/04/23 15:47 Room Air 09/04/23 12:05 Room Air 09/04/23 11:00 09/04/23 10:50 Room Air 09/04/23 10:45 Room Air 09/04/23 10:31 Room Air 09/04/23 09:48 Room Air Cardiovascular + tachycardic and + irregularly irregular Respiratory normal respiratory effort, lungs clear to auscultation Pre-Sedation Airway Assessment Smoking Status: Former smoker Hx Sleep Apnea: No Hx Difficult Intubation: No Short, Thick Neck: No Thyromental Distance: > or= 3.5 Finger Breadths Oral Cavity: + Dentures Mallampati Class: III ASA: ASA3 NPO Status Date of Last Intake of Fluids: 09/04/23 Date of Last Intake of Solid Food: 09/04/23 Procedure Planning Contraindications for Sedation: none Current Medications Reviewed: Yes Notes The planned sedation has been discussed with the patient. Informed Consent was obtained. I have identified the patient, determined the appropriateness of sedation and have assessed the patient immediately prior to the procedure. All medicine(s) and interventions are by my order.
[2023-09-05] MEDS: METOPROLOL TARTRATE 1 MG/ML VIAL IV ONE ×2 (10:01→10:05)
[2023-09-05] MEDS: dilTIAZem HCl 5 MG/ML 5 ML VIAL (CATH LAB USE ONLY) IV ONE (10:01)
[2023-09-05] MEDS: fentaNYL citrate PF 100 MCG/2 ML VIAL ONE (10:02)
[2023-09-05] MEDS: MIDAZOLAM HCL 5 MG/ML 1 ML VIAL ONE (10:02)
[2023-09-05] MEDS: WATER, STERILE FOR INJ 10 ML VIAL ONE (10:04)
[2023-09-05] MEDS: LIDOCAINE 1% LOCAL 20 ML VIAL ONE (10:04)
[2023-09-05] MEDS: VANCOMYCIN HCL 1000MG/20ML VIAL ONE (10:04)
[2023-09-05] MEDS: ceFAZolin 330 MG/ML 1 GM VIAL ONE (10:05)
--- NOTE | 2023-09-05 10:27 | Electrophysiology Report ---
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 The left prepectoral region was anesthetized with 1% lidocaine local anesthetic and left axillary venipuncture was performed by percutaneous technique and a guidewire placed through the left subclavian vein into the superior vena cava. The area was further infiltrated with 1% lidocaine local anesthetic and a 5 cm incision was made parallel to the left clavicle and 2 cm below it and carried down to the anterior pectoralis fascia. A pacemaker pocket was formed by blunt dissection anterior to the pectoralis fascia and a vancomycin-soaked sponge was placed in the pocket. An 8.5 [place] Med[employer] lead introducer was placed over the guidewire into the left subclavian vein, the dilator and guidewire were removed and a bipolar active fixation steroid tipped atrial lead was advanced through the introducer into the superior vena cava. A guidewire was placed through the introducer and the introducer was stripped from the lead and guidewire. A 7 [place] Medtronic lead introducer was placed over the guidewire into the left subclavian vein, the dilator and guidewire were removed. A C315 His 02 septal sheath was advanced through the introducer over a guidewire and advanced into the right ventricular outflow tract. The guidewire and dilator were removed and the sheath was positioned in a mid septal location. A bipolar active fixation steroid tipped ventricular lead was advanced through the introducer and rotated to advance the screw into the septum. Pacing and sensing thresholds were evaluated in bipolar configuration and are noted on the data sheet. The septal sheath was stripped away from the lead. A guidewire was placed back through the introducer and the introducer was removed over the the lead and guidewire. Using a curved stylette the atrial lead was positioned in the region of the atrial appendage and the screw extended fixing the lead in position. Sensing thresholds were evaluated in bipolar configuration and are recorded on the implant data sheet (the patient was in atrial fibrillation and pacing could not be confirmed). Diaphragmatic pacing was not present at full output.. Once the leads were in position they were attached to the anterior pectoralis fascia using 2 sutures of 2-0 silk around each lead collar. The vancomycin soaked sponge was removed from the pocket, hemostasis was obtained, the pacemaker was attached to the leads and placed in the pocket with the leads coiled beneath it. The incision was closed with a running double subcutaneous closure of 3-0 Vicryl absorbable suture, followed by running subcuticular skin closure of 4-0 Vicryl absorbable suture. Bacitracin ointment was placed on the incision and a dressing applied. [facility] [place] Electrophysiology codes Indication for Procedure (1) SSS (sick sinus syndrome): Pacing Procedure 1: Pacin Insert/Replace Pacer A & V PG Moderate Sedation Codes Moderate Sedation Codes Procedure 1: Sedation/Anesthesia: 53426 Mod Sedation by the same physician;Init15 Min Child Age 5 & Up Procedure 2: Sedation/Anesthesia: 77556 Mod Sedation by the same physician; Ea [id number] Minutes
[2023-09-05] MEDS: ceFAZolin 2000MG 2,000 MG/15 ML SYR IV SCH (10:39)
[2023-09-05] MEDS: LACTATED RINGER'S 1,000 ML IV SCH (10:39)
[2023-09-05] MEDS: METOPROLOL SUCC 50MG EXT REL TAB PO SCH (11:36)
[2023-09-05] MEDS: dilTIAZem HCL 180 MG CAPCR PO SCH (11:36)
--- NOTE | 2023-09-05 13:42 | Post Anesthesia Assessment ---
Date of Service September 05, 2023 Post Sedation Assessment Vital Signs Temp Pulse Pulse Resp BP BP Pulse Ox 09/05/23 11:00 114 H 09/05/23 11:00 79 139/92 09/05/23 10:51 79 18 139/92 94 09/05/23 10:40 146 H 18 122/78 98 09/05/23 10:25 125 H 18 114/88 98 09/05/23 07:33 36.7 C 125 H 18 96/79 L 96 09/05/23 07:07 36.5 C 57 L 14 135/79 96 09/05/23 02:38 36.6 C 68 18 119/82 96 09/04/23 23:06 36.2 C L 79 18 123/80 97 09/04/23 19:23 36.5 C 80 18 136/68 98 09/04/23 17:11 182 H 09/04/23 15:47 36.7 C 147 H 19 126/79 96 O2 Del Method 09/05/23 11:00 09/05/23 11:00 09/05/23 10:51 Room Air 09/05/23 10:40 Room Air 09/05/23 10:25 Room Air 09/05/23 07:33 Room Air 09/05/23 07:07 Room Air 09/05/23 02:38 Room Air 09/04/23 23:06 Room Air 09/04/23 19:23 Room Air 09/04/23 17:11 09/04/23 15:47 Room Air Recovery Score Activity: Moves 4 extremities Respiration: Deep Breath/Cough Circulation: +/-20% PreAnes Value Consciousness: Fully Awake Oxygen Saturation: > 92% On Room Air Post Anesthesia Score: 10 Discharge Sedation Level of Care: Fast Track Phase II Post Sedation Plan On clinical assessment, the patient appears to have tolerated the sedation without complications. Patient is recovering as anticipated. Patient will continue to be monitored by nursing and may be discharged when sedation discharge criteria are met per below protocol. Upon Completions of procedure up to 15 minutes continue every 5 minute vital signs and the P.A.R. score; then discharge to a Phase I or Fast Track to Phase II per the following guidelines: * Discharge Patient to appropriate Phase II area if PAR is 8 or greater or return to pre- procedure baseline. The post - procedure orders will be as directed. * If PAR score is less than 8 or not return to pre-procedure baseline then patient will follow Phase I monitoring till PAR is reached for Phase II. The Phase I may be done in procedure room or may call to secure a Phase I area. * If naloxone or flumazenil are used for reversal, hold in Phase I for continued monitoring from when last reversal dose was given for a minimum of 60 minutes or longer pending the nurse and/or physician discretion of patient condition before discharge to Phase II. Please call the Sedation Physician to re-evaluate and complete post-note for discharge to Phase II area. Do NOT discharge from procedure sedation or Phase 1 until post- sedation evaluation note is complete by procedure /sedation MD Sedation Discharge Instructions to be given to the patient at discharge to home.
[2023-09-05] MEDS: POLYETHYLENE (MIRALAX) 17 GM PACK PO PRN (16:13)
--- NOTE | 2023-09-05 16:54 | Billing Data ---
Date of Service September 05, 2023 Coding Level of Care Code 31750 SUB INP/OBS CARE MIN
[2023-09-05] MEDS: METOPROLOL SUCC 50MG EXT REL TAB PO STA (17:37)
[2023-09-05] MEDS: DIGOXIN 250 MCG in SYRINGE 9 ML IV STA (17:55)
[2023-09-05] MEDS ORDERED: METOPROLOL SUCC 50MG EXT REL TAB PO SCH (21:00)
--- NOTE | 2023-09-06 07:49 | XRay Report ---
XR chest 2V PA/lateral CLINICAL HISTORY: EXACT TIME ORDERED Evaluate for pneumothorax and l TECHNIQUE: 2 views of the chest were obtained. Comparison: Comparison is made to chest radiograph 09/02/2023 FINDINGS: Interval placement of a pacemaker with the leads in satisfactory position. The cardiomediastinal silh ouette is normal. The lungs are clear. Blunting of the bilateral costophrenic angles noted. IMPRESSION: Interval placement of a pacemaker with the leads in satisfactory position. No evidence of pneumothora x. ACT 112: Negative or not required by law. Electronically signed by: Shaquille Gregg M.D. 09/06/2023 7:47 AM
--- NOTE | 2023-09-06 08:11 | Cardiology Progress Note ---
Date of Service September 06, 2023 Assessment & Plan (1) SSS (sick sinus syndrome): (2) Hypertension: (3) Anticoagulant long-term use: Plan ASSESSMENT/PLAN: 1. Paroxysmal atrial fibrillation: Has been very symptomatic with documented episodes including today post pacemaker and increased AV gail medications. Frequency has increased while on Multaq in the past few months. Now on amiodarone, IV converted to oral, but still early in treatment. The heart rate is very difficult to control. I discussed options with her and I am going to go up on AV gail blocking medications today (she is now on moderate dose digoxin, diltiazem and metoprolol). If this does not work later today our options are to try cardioversion tomorrow in hopes that with the pacemaker and some amiodarone on board we can maintain sinus rhythm (I am not sure how likely that is) versus creating AV block by ablation (which we could do quickly) and that would achieve rate control. I am going to adjust her medications this morning and will make that decision later today. 2. Hypertension: Blood pressure has been quite good since pacemaker implantation increase in medications, the AV gail blocking medications hopefully will not drop her blood pressure at higher doses. I am going to discontinue amlodipine. 3. Anticoagulation therapy: I am going to restart Eliquis this morning, her last dose was September 04, 2019 4 in the morning. Her site looks good although it does increase the risk of bleeding somewhat. Admission and Anticipated Discharge Date Admission Date: September 02, 2023 Subjective She is feeling relatively well today, she feels fine as far as the surgical procedure goes with minimal incisional discomfort but is aware of the rapid heart rate which is somewhat uncomfortable. No chest pain, shortness of breath or lightheadedness. Physical Exam Physical Exam: The incision is clean and dry, minor ecchymosis as expected, no swelling. Cardiac rhythm is irregular and rapid, no rub Lungs are clear Results & Data Vital Signs (Past 12 Hours) Vital Signs Temp Pulse Pulse Resp BP Pulse Ox O2 Del Method 09/06/23 07:44 36.4 C L 86 20 138/72 97 Room Air 09/06/23 02:55 36.4 C L 65 18 126/78 97 Room Air 09/06/23 00:00 132 H 09/05/23 22:59 36.4 C L 91 H 19 120/77 96 Room Air Laboratory Results Intake and Output 09/05/23 09/06/23 09/06/23 22:59 06:59 14:59 Intake Total 1230 / 1230 0 / 1230 Output Total 1250 / 1750 500 / 1750 Balance -20 / -520 -500 / -520 Intake: Oral 1230 / 1230 0 / 1230 Output: Urine 1250 / 1750 500 / 1750 Other: Weight 84.1 kg Weight Measurement Method Built in [facility] Digoxin level 0.6 today Diagnostic Findings Postop ECG: Pending when the heart rate is lower and we can assess pacing Telemetry: Consistently high heart rate, very little change control coordinator the last 24 hours despite marked increase in medications. Chest x-ray: Good lead position, no pneumothorax Pacemaker evaluation: Excellent pacing and sensing characteristics PG Care Time/CCT Total # of Minutes Spent Total Time Spent with Patient: Total time spent is greater than 50% in coordination of care (as documented) at patient's floor/unit and/or counseling patient: Coding Level of Care Code 93371 SUB INP/OBS CARE 3/50MIN Diagnoses SSS (sick sinus syndrome) I49.5 Hypertension I10 Anticoagulant long-term use Z79.01
[2023-09-06] MEDS: METOPROLOL SUCC 50MG EXT REL TAB PO SCH (08:46)
[2023-09-06] MEDS ORDERED: METOPROLOL SUCC 50MG EXT REL TAB PO SCH (09:00)
[2023-09-06] MEDS: APIXABAN 5 MG TABLET PO SCH (09:34)
[2023-09-06] MEDS: dilTIAZem HCL 300 MG CAPCR PO SCH (09:34)
[2023-09-06] MEDS: DIGOXIN 250 MCG in SYRINGE 9 ML IV STA ×2 (09:34→17:25)
--- NOTE | 2023-09-06 12:47 | Hospitalist Progress Note ---
Date of Service September 06, 2023 Assessment & Plan (1) Anticoagulant long-term use: (2) Hypothyroidism: (3) Hypertension: (4) Paroxysmal atrial fibrillation: Plan 78 year old female with pertinent PMHx of paroxysmal A-fib, hypothyroidism, HTN presenting with palpitations x2 days. # A-Fib with RVR, Tachy-Omkar Syndrome: - S/p pacer placement - with consistently elevated heart rates, trial increase in AV gail blocking agents as recommended by cardiology. If unable to gain rate control, likely cardioversion vs AV gail ablation. - Consult cardiology, appreciate recs: - Increase Diltiazem to 300 daily - Continue Amiodarone PO 400mg BID - Increase Metoprolol Succinate to 200mg daily #Hypothyroidism: - Continue home med ([place] thyroid 90mg daily) #HTN: - Continue home Lisinopril - Discontinue amlodipine Dispo: PCU/Tele VTE ppx: Eliquis Diet: HH, NPO at midnight Admission and Anticipated Discharge Date Admission Date: September 02, 2023 Supervising Physician Co-Signing Physician Notes I personally examined the patient and verified all hood points of history and exam, discussed case, and agree with decision making with Dr Toro feeling OK but HR remains increased. vitals noted nad heent nc at mmm breathing unlabored no accessory muscles A-fib/RVR/sick sinus syndromepost pacer, rates still high. continue to increase rate control, probably will need repeat cardioversion and/or ablation given how refractory her rates have been, but escalate meds further and continue to followpossibly could hold off on procedures if she responds. Subjective Patient continues to be in Afib with RVR, telemetry reviewed, overnight rates average 130s but up to 200 at times. Patient remains asymptomatic, denies CP, SOB. Hemodynamically stable. Review of Systems Review of Systems: as per HPI Physical Exam Constitutional: WD/WN, vitals as above Neck: trachea midline, no thyromegaly Respiratory: normal respiratory effort, lungs clear to auscultation Cardiovascular: Rate/Rhythm: + tachycardic and + irregularly irregular Skin: no rashes, warm and dry Psychiatric: A+Ox3, euthymic affect Results & Data Results & Data Vital Signs (Past 12 Hours) Vital Signs Temp Pulse Pulse Pulse Resp BP BP 09/06/23 10:37 36.2 C L 156 H 22 137/83 09/06/23 09:34 129 H 09/06/23 08:53 130 H 135/92 09/06/23 08:00 129 H 09/06/23 07:44 36.4 C L 86 20 138/72 09/06/23 02:55 36.4 C L 65 18 126/78 Pulse Ox O2 Del Method 09/06/23 10:37 97 Room Air 09/06/23 09:34 09/06/23 08:53 09/06/23 08:00 09/06/23 07:44 97 Room Air 09/06/23 02:55 97 Room Air Resident Activity Tracking Resident Involvement: Resident Care Provided Care Provided: Adult Hospital Medicine
--- NOTE | 2023-09-06 19:25 | Billing Data ---
Date of Service September 06, 2023 Coding Level of Care Code 96972 SUB INP/OBS CARE MIN
[2023-09-06] MEDS: ACETAMINOPHEN W/CODEINE #3 1 TAB PO PRN (21:31)
--- NOTE | 2023-09-07 08:37 | Cardiology Progress Note ---
Date of Service September 07, 2023 Assessment & Plan (1) Atrial fibrillation with RVR: (2) Hypertension: (3) Anticoagulant long-term use: (4) Status post placement of cardiac pacemaker: Plan ASSESSMENT/PLAN: 1. Paroxysmal atrial fibrillation: Has been very symptomatic with documented episodes of rapid atrial fibrillation which has been difficult to rate control. Yesterday afternoon she converted to the an atrial paced rhythm, that occurred at around 5:30 PM and prior to that she had gotten all of her AV gail blocking medications and the rate was still elevated (although some of that might have been due to pacing). Although she feels well on her current rate control medications I do not know if we should have her on as much, although her blood pressure is not low today. I would recommend continuing her current doses of diltiazem and metoprolol succinate, but discontinue digoxin. Her pacemaker will monitor recurrence of atrial fibrillation. I would send her home on amiodarone 400 mg daily, we will adjust that as an outpatient. 2. Hypertension: Blood pressure had been quite good following pacer implantation but I did discontinue amlodipine and lisinopril. Since her pressure is now high perhaps it is from discontinuation of that even though she is on high doses of diltiazem and metoprolol. You could consider adding the lisinopril back, I would not add amlodipine since she is already on high-dose diltiazem. 3. Anticoagulation therapy: She is doing well on Eliquis with no evidence of bleeding and I would continue that at her current dose. 4. Postop day #2: The site looks good, I will arrange follow-up tomorrow morning for her pacemaker. As far as I am concerned she could go home today. Admission and Anticipated Discharge Date Admission Date: September 02, 2023 Subjective She is feeling quite well today, even yesterday afternoon with the high heart rate she felt well. This morning she has no incisional discomfort, was walking around the alfaro with no difficulty and no side effects on high doses of medications. Physical Exam Physical Exam: Constitutional: Alert, cooperative and in no distress. HEENT: Unremarkable Neck: No jugular venous distention, carotid pulses are normal and equal bilaterally without bruits. Pulmonary: Clear to auscultation bilaterally. Cardiac: Regular rhythm with no murmur, gallop or rub. Abdomen: Soft, nontender with normal bowel sounds. Extremities: No edema. Distal pulses intact. Neurologic: No focal findings. Gait is steady. Skin: The device site is well-healed without erythema, swelling or tenderness. No rash, ecchymoses or petechiae. Results & Data Vital Signs (Past 12 Hours) Vital Signs Temp Pulse Pulse Resp BP BP Pulse Ox 09/07/23 07:38 61 09/07/23 07:36 36.7 C 60 18 154/91 H 98 09/07/23 03:29 36.3 C L 62 18 150/87 H 99 09/07/23 00:00 61 09/06/23 22:33 36.6 C 61 18 129/83 97 O2 Del Method 09/07/23 07:38 09/07/23 07:36 Room Air 09/07/23 03:29 Room Air 09/07/23 00:00 09/06/23 22:33 Room Air Laboratory Results Intake and Output 09/06/23 09/07/23 09/07/23 22:59 06:59 14:59 Intake Total 150 / 960 450 / 960 Output Total 1000 / 1700 Balance 150 / -740 -550 / -740 Intake: Oral 150 / 960 450 / 960 Output: Other 1000 / 1000 Other: # Unmeasured Voids 1 1 Weight 82.9 kg Diagnostic Findings Telemetry: Atrial fibrillation with rapid heart rate until around 1730 yesterday, then an atrial paced rhythm at appropriate heart rate. PG Care Time/CCT Total # of Minutes Spent Total Time Spent with Patient: Total time spent is greater than 50% in coordination of care (as documented) at patient's floor/unit and/or counseling patient: Coding Level of Care Code 74679 SUB INP/OBS CARE 2/35MIN Diagnoses Atrial fibrillation with RVR I48.91 Hypertension I10 Anticoagulant long-term use Z79.01 Status post placement of cardiac pacemaker Z95.0
--- NOTE | 2023-09-07 15:27 | Discharge Summary ---
Date of Service September 07, 2023 Admission HPI Per Admitting Provider 78 year old female with pertinent PMHx of paroxysmal A-fib, hypothyroidism, HTN presenting with palpitations x2 days. Patient notes that she feels like she can tell when she is in A-fib - tachycardia/palpitations usually resolve within a few hours but have been present continuously for about 2 days now. H/o ablation, still experiences paroxysmal episodes of A-fib since procedure. Denies associated chest pain, shortness of breath, extremity swelling. Patient is on Multaq 400mg BID, notes that dose has not changed recently, also states that she is adherent with medications. On Eliquis for anticoagulation. Patient denies significant recent caffeine or alcohol use. Denies recent illness. Also states that, as far as she knows, she has been maintaining euthyroid state, no recent change in Minerva thyroid dosing. ED Course: Patient found to be in atrial fibrillation with RVR, heart rate up to the 150s but otherwise hemodynamically stable. Labs significant for WBC 11.13, trop slightly elevated at 23.3, repeat 19.5 CXR negative Patient given loading dose of Diltiazem and started on Diltiazem drip. Admission Exam Per Admitting Provider Constitutional: WD/WN, vitals as above Neck: trachea midline, no thyromegaly Respiratory: normal respiratory effort, lungs clear to auscultation Cardiovascular: Tachycardic with irregular rhythm, no murmurs appreciated, distal pulses 2+, no LE edema appreciated Skin: no rashes, warm and dry Psychiatric: A+Ox3, euthymic affect Principal Diagnosis Afib RVR Discharge Exam Constitutional WD/WN, vitals as above Neck trachea midline, no thyromegaly Respiratory normal respiratory effort, lungs clear to auscultation Cardiovascular Rate/Rhythm: + tachycardic and + irregularly irregular Skin no rashes, warm and dry Psychiatric A+Ox3, euthymic affect Discharge Data Allergies Allergy/AdvReac Type Severity Reaction Status Date / Time No Known Allergies Allergy Verified 09/02/23 16:31 Consultations 09/02/23 15:57 ED Decision to Admit Stat 09/02/23 17:55 Consult Cardiology Stat Procedures Performed Operation Date: 09/05/23 08:00 Actual Procedures p Pacer with A/V Leads (Dual) - Phu Blanton MD Ordered Studies 09/05/23 06:45 EP Lab Images for PACS ONCE Hospital Course (1) Anticoagulant long-term use: (2) Hypothyroidism: (3) Hypertension: (4) Paroxysmal atrial fibrillation: Plan 78 year old female with pertinent PMHx of paroxysmal A-fib, hypothyroidism, HTN presented with palpitations x2 days. # A-Fib with RVR, Sick Sinus Syndrome: - S/p pacer placement - patient stable in atrially paced sinus rhythm with rate in the 60s for >12 hour prior to discharge - Discharge Medications: - Diltiazem 300 daily - Amiodarone 400mg BID - Metoprolol Succinate 200mg daily Follow up with Dr. Blanton 09/08/23 to discuss possible AV gail ablation. #Hypothyroidism: - Continue home med (Minerva thyroid 90mg daily) #HTN: - Amlodipine and Lisinopril discontinued as BP relatively controlled with increased doses of Diltiazem and Amlodipine - Consider restarting Lisinopril if BP consistently elevated in outpatient setting Total Time Total Time Spent Total Time Spent (In Minutes): <30 Discharge Plan Discharge Items Patient Disposition: Home - Self-Care Reason For Visit: AFIB RVR Discharge Diagnosis: Afib RVR Activity: As commented below Activity Comment: gradual progression of actiity as tolerated Non-emergency contact: Primary Care Provider and Organ Pipe Voicer Call non-emergency contact if: you have any medication questions, your symptoms worsen, your wound has increased redness, your wound has increased drainage and your wound pain has increased Follow-up/Referrals: Phu Blanton MD [Physician] - 09/08/23 10:00 am Magen Mcclain MD [Primary Care Provider] - 09/19/23 9:45 am Diet: Heart Healthy Addtl Attending Provider Instructions: ACTIVITY RECOMMENDATIONS: * Do not raise affected arm over head for 2 weeks. SPECIAL CARE INSTRUCTIONS: * If bleeding occurs, apply direct pressure to area for 5 minutes. * Call your doctor if you have severe pain, fever, drainage or bleeding at site. * Keep dressing on and dry for 24 hours then remove. * Keep any scheduled doctor's appointment. * Implant Card - hand held device with website information given. SKIN IRRITATION: * You may experience some redness and/or swelling in the area where radiation was administered. If any skin irritation occurs, please contact your family physician. FOLLOW UP VISIT: Keep any scheduled doctor appointments. You were admitted to the hospital due to A-fib with increased heart rate. You were treated with several medications to try to control heart rate/rhythm - due to persistently elevated heart rate and rapid return to A-fib after cardioversion, you had a pacemaker placed. This pacer is designed to prevent your heart rate from dipping too low, it does not correct elevated heart rate. For this reason, you need to continue medications on discharge (see instructions below). Please follow up with Dr. Blanton in his clinic tomorrow, he can help determine the best next steps for management of your A-fib. A discharge summary will be sent to your primary care physician to ensure continuity of care. Please bring this discharge summary with you to your next office appointment so that your provider can review it at that time. Medications: Your medication list has been reviewed and reconciled upon discharge to ensure accuracy and continuity of care. An updated list of all your medications is included with your hospital discharge paperwork. Please review this list closely and make note of any changes to your medications. Medications that were discontinued: - Please STOP the following medications: Multaq, Amlodipine, Lisinopril - please continue to follow up with your primary care provider to determine if your blood pressure medications should be resumed in the future. - Please CONTINUE the following medications: - Amiodarone 400mg daily - Diltiazem 300mg daily - Metoprolol Succinate 200mg daily Follow up appointments: - Make a follow up appointment with your PCP within the next week. It is very important that you follow up with them shortly after discharge from the hospital. - Keep all of your follow up appointments as already scheduled. If you cannot make an appointment, notify your provider. CONTACT YOUR PRIMARY CARE PROVIDER if you experience any of the following: - Difficulty following your treatment plan - Difficulty taking any of your medications CALL 911 OR GO TO THE EMERGENCY DEPARTMENT if you experience any of the following: - Sudden, severe abdominal pain or nausea/vomiting - Severe chest pain or chest pain that radiates to your jaw or arm - Sudden, severe shortness of breath or difficulty breathing Pending Studies at Discharge: No Stand-Alone Forms: My SCHEDit, Smoking Cessation Medications and DC Order Prescriptions: New amiodarone 200 mg Tablet 400 mg PO BIDM 30 Days Qty: 120 0RF metoprolol succinate 50 mg Tablet Extended Release 24 Hr 200 mg PO QAM 30 Days Qty: 120 0RF diltiazem HCl [Cardizem CD] 300 mg Capsule,Extended Release 24hr 300 mg PO QAM 30 Days Qty: 30 0RF Continued Minerva Thyroid 90 mg tablet 90 mg PO DAILY Qty: 90 2RF ergocalciferol (vitamin D2) 50 mcg (2,000 unit) capsule 50 mcg PO DAILY apixaban 5 mg tablet 5 mg PO BID Qty: 180 potassium chloride 20 mEq tablet extended release 20 meq PO DAILY acetaminophen 650 mg Tablet Extended Release 650 mg PO HS acetaminophen 650 mg Tablet Extended Release 1,300 mg PO QAM diphenhydramine-acetaminophen [Tylenol PM Extra Strength] 25-500 mg Tablet 1 tab PO HS PRN (Reason: Insomnia) lorazepam 0.5 mg tablet 0.5 mg PO Q8 PRN (Reason: Anxiety) Held lisinopril 40 mg tablet 40 mg PO DAILY Qty: 90 3RF Hold Instructions: Resume on 10/25/23. Hold until seen by PCP - if BP continues to be elevated outside of hospital setting, consider restarting Discontinued amlodipine [Norvasc] 5 mg tablet 5 mg PO DAILY Qty: 30 2RF Multaq 400 mg tablet 400 mg PO BID bupropion HCl 150 mg Tablet Sustained-Release 12 Hr 150 mg PO QAM Discharge Orders: Discharge Order (Routine); Ordered 09/07/23 Ordered By: Barrie Toro Admission Data Admit Date/Time: 09/02/23 17:20 Attending Provider: Jeff Moralez Admit Provider: Barrie Toro Primary Care Provider: Magen Mcclain Other Providers: Boom Jhaveri; David José Other Interventions: Discharge Summary Assessment (RN) Last Done: 09/07/23 13:58 Supervising Physician Co-Signing Physician Notes I personally examined the patient and verified all hood points of history and exam, discussed case, and agree with decision making with Dr Toro Feels okay. Heart rate improved. Set up for cardiology follow-up tomorrow including monitoring. Also has a watch that follows rates and rhythms. vitals noted nad heent nc at mmm breathing unlabored no accessory muscles A-fib/RVR/sick sinus syndromepost pacer, rates finally improved. Safe/stable for home. Med management and close/ongoing follow-up. Otherwise as above Resident Activity Tracking Resident Involvement: Resident Care Provided Care Provided: Adult [facility]
--- NOTE | 2023-09-07 16:46 | Billing Data ---
Date of Service September 07, 2023 Coding Level of Care Code 71267 IN/OBS DISCH 30 MIN/LESS
--- NOTE | 2023-09-09 06:08 | Electrocardiogram Report ---
Test Reason : Blood Pressure : / mmHG Vent. Rate : 102 BPM Atrial Rate : 070 BPM P-R Int : 000 ms QRS Dur : 098 ms QT Int : 282 ms P-R-T Axes : 000 051 204 degrees QTc Int : 367 ms Atrial fibrillation with rapid ventricular response with frequent ventricular-paced complexes Nonspecific ST abnormality Abnormal ECG When compared with ECG of 04-SEP-2023 10:28, Atrial fibrillation has replaced Sinus rhythm Ventricular paced complexes are now present Vent. rate has increased BY 54 BPM Confirmed by Ze Garcia ([id number]) on 09/09/2023 6:07:23 AM Referred By: REFERRED SELF Confirmed By:Ze Garcia
--- NOTE | 2023-09-09 06:20 | Electrocardiogram Report ---
Test Reason : Blood Pressure : / mmHG Vent. Rate : 061 BPM Atrial Rate : 061 BPM P-R Int : 218 ms QRS Dur : 092 ms QT Int : 384 ms P-R-T Axes : 029 044 088 degrees QTc Int : 386 ms Atrial-paced rhythm with prolonged AV conduction Nonspecific ST abnormality Abnormal ECG When compared with ECG of 06-SEP-2023 13:44, Electronic atrial pacemaker has replaced Electronic ventricular pacemaker and atrial fibrillation Vent. rate has decreased BY 41 BPM Confirmed by Ze Garcia ([id number]) on 09/09/2023 6:20:18 AM Referred By: REFERRED SELF Confirmed By:Ze Garcia
== END 2023-09-07 14:34 | disposition home or self-care (01) | DRG 244 ==
LOC: ED 14:26 → SUATTDRO 17:20 → 2S 17:20